=== PATIENT | female | born 1985 | race Caucasian/White ===

== ENCOUNTER → 2021-03-05 11:57 | Outpatient (BNVA) | payer OTHER, SELFPAY | PROVIDERS: Family Provider General Practice; Visit Provider Nurse Practitioner Family | DX: Z20.822 Contact with and (suspected) exposure to COVID-19 (principal); J06.9 Acute upper respiratory infection, unspecified | CPT/HCPCS: 87635 ==

== ENCOUNTER 2021-03-06 16:34 | Emergency (ER) | payer SELFPAY ==
[2021-03-06 16:49] VITALS: BP 103/71; PULSE 76; RESP 18; TEMP 36.7; O2SAT 100; BMI 29.6
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
[2021-03-06] MEDS: amoxicillin-clav 875-125 mg Tablet 1 TAB PO (17:50)
[2021-03-06 17:54] VITALS: BP 118/79; PULSE 67; RESP 18; O2SAT 98
== END 2021-03-06 17:51 | disposition home or self-care (01) ==
PROVIDERS: Emergency Provider Nurse Practitioner Family
DX: Z48.02 Encounter for removal of sutures (principal)
CPT/HCPCS: 99282

== ENCOUNTER 2023-10-28 19:54 | Emergency (ER) | payer OTHER, SELFPAY ==
[2023-10-28 20:23] VITALS: BP 116/74; PULSE 87; RESP 18; TEMP 36.6; O2SAT 99
--- NOTE | 2023-10-28 20:29 | CTR_ITS ---
PROCEDURE INFORMATION: Exam: CT Head Without Contrast Exam date and time: 10/28/2023 8:51 PM Age: 38 years old Clinical indication: Pain; Prior surgery; Surgery date: 1-6 months; Surgery type: Malignant tumor resection August 2023. Patient HX: C/O persistent headaches over last two weeks. Resection of RT frontal intracranial tumor in August 2023. ; Additional info: PERES TECHNIQUE: Imaging protocol: Computed tomography of the head without contrast. Radiation optimization: All CT scans at this facility use at least one of these dose optimization techniques: automated exposure control; mA and/or kV adjustment per patient size (includes targeted exams where dose is matched to clinical indication); or iterative reconstruction. COMPARISON: No relevant prior studies available. RADIATION DOSE METRICS: Total DLP (mGy-cm): 1025.44 FINDINGS: Brain: Right frontal craniotomy changes with right frontal lobe poorly defined low-density area measuring up to at least 3.2 cm, and underlying mass is not excluded, MRI could better assess this area. Cerebral ventricles: No ventriculomegaly. Paranasal sinuses: Visualized sinuses are unremarkable. No fluid levels. Mastoid air cells: Visualized mastoid air cells are well aerated. Bones: See Brain finding. Soft tissues: Unremarkable. CT/CT head wo con* [id number] IMPRESSION: Right frontal craniotomy changes with right frontal lobe poorly defined low-density area measuring up to at least 3.2 cm, and underlying mass is not excluded, MRI could better assess this area.
--- NOTE | 2023-10-28 20:39 | ED_ITS ---
HPI - Headache General: Chief Complaint: Headache Stated Complaint: HeadAche Time Seen by Provider: 10/28/23 20:04 Source: patient Mode of arrival: ambulatory Limitations: no limitations History of Present Illness: 38-year-old female history of brain tumo r she had removed in August. States she did recently moved here states she has been having a headache for the last few weeks pressure-like headache she rates a 7 out of 10 she denies any vomiting denies any fevers she denies any worse improved factors Associated symptoms: Deny chest pain, fever(s), nausea, rash or vomiting Review of Systems Const: Denies: fever(s), chills, body aches or change in appetite Eyes: Denies: blurry vision or eye discomfort ENMT: Denies: throat pain or dental pain Card: Denies: chest pain Resp: Denies: dyspnea GI: Denies: abdominal pain, nausea, vomiting or diarrhea Musc: Denies: neck pain or back pain Skin/Breast: Denies: rash Neuro: Reports: headache(s) Physical Exam Const: COMMON NORMALS: no acute distress, patient oriented x3 and healthy appearing HENMT: COMMON NORMALS: normocephalic and atraumatic HEAD & SCALP: normocephalic and atraumatic Eye: COMMON NORMALS: Equal, round and reactive pupils present PUPIL: Yes Equal, round and reactive pupils present Neck/C-Spine: COMMON NORMALS: full ROM and supple Chest: COMMONS NORMALS: normal inspection of the chest Resp: COMMON NORMALS: normal respiratory effort Cardio: COMMON NORMALS: regular rate, regular rhythm and No murmurs present (Cardio) RATE: regular rate RHYTHM: regular rhythm GI: COMMON NORMALS: Normal to inspection, nondistended, normoactive bowel sounds present, Soft to palpation, non-tender and no masses PALPATION: Yes Soft to palpation Extremity: COMMON NORMALS: normal to inspection and full ROM Neuro: COMMON NORMALS: patient oriented x3, moves all extremities and no focal motor deficits Psych: COMMON NORMALS: mental status grossly normal, Normal thought process present and cooperative THOUGHT PROCESS: Normal thought process present Skin: COMMON NORMALS: no rashes or lesions noted and no wounds GENERAL SKIN EXAM: no rashes or lesions noted Course Vital Signs: Vital signs: Vital Signs Temperature 98 F 10/28/23 20:23 Pulse Rate 87 10/28/23 20:23 Respiratory Rate 18 10/28/23 20:23 Blood Pressure 116/74 10/28/23 20:23 Pulse Oximetry 99 10/28/23 20:23 MDM - Headache Medical Decision Making Patient presents here with a headache she has no signs of migraine hemorrhage or meningitis head CT showed no acute abnormality she does follow-up with oncology next week she is to follow-up as scheduled return here if worsening she understands agrees to plan Medical Records I reviewed the patient's medical records. Lab Data Radiology Impressions Head CT 10/28/23 20:29 IMPRESSION: Right frontal craniotomy changes with right frontal lobe poorly defined low-density area measuring up to at least 3.2 cm, and underlying mass is not excluded, MRI could better assess this area. All radiology interpretation(s) finalized by discharge Discharge Plan Discharge Patient Disposition: Home Clinical Impression: Headache Condition: Stable Prescriptions: No Action amoxicillin-pot clavulanate [Augmentin] 875-125 mg tablet 1 tab PO BID 7 Days Qty: 14 0RF Discharge Orders: Discharge ED (Routine); Ordered 10/28/23 Ordered By: Trista Miles Discharge Diet: Advance as tolerated Discharge Activity: Resume usual activity Patient Instructions: General Headache (ED) Coding Level of Care Code ED Campaign Assistant for Raiza Carmona
[2023-10-28] MEDS: metoclopramide 5 mg/mL SDV 2 mL 10 MG IVP (20:47)
[2023-10-28] MEDS: diphenhydrAMINE 50 mg/mL SDV 1mL IVP (20:47)
--- NOTE | 2023-10-28 21:42 | PC.NURSE ---
Pt. states that the medication helped her headache.
--- NOTE | 2023-10-28 22:03 | PC.NURSE ---
Pt. wanting copies of her CT scan results. I have explained to patient that she is able to get her results through her patient portal, or she is able to go to medical records and sign for a copy of her results.
== END 2023-10-28 22:14 | disposition home or self-care (01) ==
PROVIDERS: Emergency Provider Emergency Medicine
DX: R51.9 Headache, unspecified (principal)
CPT/HCPCS: 70450; 96374; 96375; 99285; J1200; J2765

== ENCOUNTER 2023-10-31 13:54 | Outpatient (CLI) | payer OTHER, SELFPAY ==
--- NOTE | 2023-10-31 13:45 | MR_ITS ---
WS: [id number] MRI BRAIN WITH AND WITHOUT CONTRAST HISTORY: compare to previous COMPARISON: CT head 10/28/2023, no prior MRI. Additional history concerning the mass was obtained from Dr. Gonzalez's oncology history and physical. Prior RIGHT craniotomy 08/29/2023. Prior MRI from outside hospital on 08/30/2023 described a peripherall y enhancing mass measuring 5.1 x 4.0 x 4.1 cm. TECHNIQUE: Multiplanar imaging performed through the brain with MultiHance 20 ml's IV. Postsurgical resection site with tumor debulking is identified in the RIGHT frontal lobe. Large heter ogeneous mass of increased signal with a few scattered central hemosiderin deposits. This area of abn ormal signal involves the duque and white matter measuring 5.0 x 4.3 x 4.0 cm. Mass extends to the ant erior hemispheric falx. There is slight mass effect but no midline shift. On the postcontrast imaging there is nodular peripheral enhancement. There is some increased T1 signal on the precontrast imagin g but the area of enhancement extends beyond the nonenhanced T1 signal abnormality. Area of nodular e nhancement measures 4.0 x 1.9 x 3.4 cm. No definite dural nodularity. The enhancement does extend nela y close to the anterior RIGHT lateral dura. Mass does abut the anterior RIGHT corpus callosum with sl ight displacement. Craniotomy/biopsy amy holes are noted anteriorly. There is fluid along the craniotomy site and there is very slight enhancement. This can be reevaluated on follow-up exams. No ventriculomegaly. Paranasal sinuses: Well aerated with no significant disease. Mastoid air cells: Normal. Calvarium and scalp: Normal. MR/MR head wo/w con [id number] IMPRESSION: 1. No prior MRI brain examinations for comparison. 2. RIGHT frontal lobe surgical resection site measures 5.0 x 4.3 x 4.0 cm. In the central resection site there is nodular irregular enhancement measuring 4.0 x 1.9 x 3.4 cm. No midline shift. There is very minimal bowing of the midline structures to the LEFT. Cannot comment on progression or improvement of the le plasm without the prior MRI examinations. 3. No additional area of abnormal enhancement. Amy holes are identified from the prior biopsy site. There is enhancement along the amy holes which may be s een with post surgery. This can be further evaluated on follow-up exams also. 4. No hydrocephalus.
[2023-10-31] MEDS: gadobenate dimeglumine 20 mL vial IV (14:54)
== END 2023-10-31 13:55 | disposition home or self-care (01) ==
PROVIDERS: Visit Provider Internal Medicine Medical Oncology
DX: C71.9 Malignant neoplasm of brain, unspecified (principal); Z48.811 Encounter for surgical aftercare following surgery on the nervous system; R94.02 Abnormal brain scan
CPT/HCPCS: 70553; A9577

== ENCOUNTER 2023-11-16 14:31 | Oncology outpatient (recurring) (ONCR) | payer OTHER, SELFPAY ==
[2023-10-30 11:04] LABS: Basophils % 0.5 %; Eosinophils # 0.2 10^3/uL (0.0-0.8); Eosinophils % 3.5 %; Lymphocytes # 1.5 10^3/uL (0.8-4.8); Lymphocytes % 23.1 %; Mean Corpuscular HGB Conc 31.1 g/dL (30-55); Mean Corpuscular Hemoglobin 24.3 pg (27-33); Mean Corpuscular Volume 78.2 fl (85-98); Mean Platelet Volume 10.5 fL (7.4-10.4); Monocytes # 0.4 10^3/uL (0.2-0.9); Monocytes % 5.4 %; Neutrophils # 4.35 10^3/uL (1.8-7.7); Neutrophils % 67.2 %; Nucleated Red Blood Cells % 0 %; Platelet Count 263 10^3/cmm (157-399); Red Blood Count 4.73 10^6/uL (3.85-5.65); Red Cell Distribution Width 15.9 % (12.1-15.1); White Blood Count 6.48 10^3/uL (3.29-11.43)
[2023-10-30 11:33] LABS: Alanine Aminotransferase 10 U/L (0-33); Albumin Level 3.9 g/dL (3.5-5.2); Alkaline Phosphatase 65 U/L (35-105); Anion Gap 14.7 (5-19); Aspartate Amino Transferase 10 U/L (0-32); Blood Urea Nitrogen 11 mg/dL (6-20); Calcium 8.8 mg/dL (8.5-10.5); Carbon Dioxide 22 mmol/L (22-29); Chloride 105 mmol/L (98-107); Globulin 3.2 g/dL (1.3-4.6); Glomerular Filtration Rate 111.3 mL/min (90-130); Glucose 93 mg/dL (65-115); Osmolality Calculated 285 mOsm/kg (285-295); Potassium 3.7 mmol/L (3.5-5.1); Sodium 138 mmol/L (136-145); Thyroid Stimulating Hormone 0.66 uIU/mL (0.27-4.20); Total Bilirubin 0.2 mg/dL (0.15-1.2); Total Protein 7.1 g/dL (6.6-8.7)
--- NOTE | 2023-10-30 14:52 | N.ONRAD NP_ITS ---
Radiation Oncology New Patient Visit Patient: Jazmyne Mcmahan MR#: [id number] : 1985> Age: 38> Sex: Female> Dictated by: Dr. Supriya Garcia Date of Service: 10/30/2023 Referring Physician(s) : Carlos Diagnosis: GBM Radiotherapy to date: Summary > No prior radiation therapy. Chief Complaint / History of Present Illness: Patient is a 38-year-old lady who has been recently diagnosed 2 months ago with a GBM. She originally presented to the emergency room with worsening headaches. A CT angiogram showed a low-attenuation mass in the right frontal lobe which at that time measured 4.1 x 2.4 cm in size. By August 23 she was admitted to [facility]. An MRI of her brain showed a mass at that time that was 5.5 cm in size in the frontal region. She was also noted to have a 6 mm right to left midline shift. She had additional scans of the chest abdomen and pelvis and did not have any evidence of a primary lung malignancy. On August 29, 2023 she underwent a right-sided craniotomy. Surgery karimi the debulking was done but her postop scan showed residual malignancy that apparently measured 5.1 x 4 x 4.1 cm in size. 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 The tumor was noted to be hyper methylated with me methylation of MGMT promoter region noted to be greater than or equal to 12%. She had additional mutations detected but no other actionable mutations were noted. She was initially stressed scheduled to start at [facility] and even had a mask made. Between now and then she had elected to move to our area and was unable to continue to be treated in [place]. She is here today to discuss starting radiation here in [place]. She is also seeing Dr. Gonzalez today to talk about chemotherapy. Unfortunately over the last week or 2 she has began to have increasing headaches similar to the ones that she had prior to her surgery. Current Medications: Albuterol Allergies: No known allergies Medical History: Asthma no history of collagen vascular disease. No previous radiation therapy. Surgical History: Cholecystectomy, tubal ligation, craniotomy Family History: Her father had esophageal cancer Social History: She is a current every day smoker. She drinks socially. 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 Current Complaints / Review of Systems: . She currently complains actively of a headache which starts at the base of her skull and radiates over the top. She has some dizziness and some nausea as well Vital Signs: Performed on 10/30/2023 11:31 AM BMI - 33.282 kg/m2 (high), Height - 65 in, Weight - 200 lbs, Temperature - 98 f, Pulse - 86 /min, Respiration - 17 /min, O2 Sat - 99 %, Pain - 10, Fatigue - 0 and BP - 122/ 78 mm(hg). Physical Exam: General: Patient is in no apparent distress. She is accompanied by several family members. HEENT: She has a well-healing incision in the right frontal parietal area. Her hair is growing back nearly an entire inch since her surgery. Pupils are equal round reactive to light, extraocular muscles intact, sclera clear Pulmonary: Respiratory rate is regular nonlabored Cardiovascular: Regular rate and rhythm Abdomen: Moderately protuberant and android pattern Extremities: Without gross edema or lymphedema noted in the upper or lower extremities Neurological: Alert and orient x 3. Gait and speech within normal limits, no focal deficits noted Psych: Affect is appropriate for current situation Performance Status: 90 Pathology: High-grade glioma, GBM Lab: Imaging: See HPI Impression: GBM and a 38-year-old Plan: This time we talked about trying to get her treatment started soon as possible. She will have another MRI so we can see the full extent of her disease currently. Will use this to help with the planning phase. She is already been through the simulation process. She has previously discussed the daily treatment regiment and knows that it would be a 6-week course of treatment. She also understands the risks and side effects both acute and long-term. At this point we will see if we can get her simulation done tomorrow and hopefully her MRI this next few days as well then we get her treatment started soon as possible. In the interim I have asked her to picker and packer some Prevacid or Pepcid and I will start her on dexamethasone 4 mg 3 times a day. Signed by: 10/30/2023 2:50:34 PM <<Signature on File>> Time spent with patient:35 CPT Code: CPT Code:
[2023-11-09 11:07] LABS: Basophils # 0.1 10^3/uL (0.0-0.1); Basophils % 0.2 %; Hematocrit 40.3 % (36-47); Lymphocytes # 3.5 10^3/uL (0.8-4.8); Lymphocytes % 15.4 %; Mean Corpuscular Hemoglobin 24.3 pg (27-33); Mean Corpuscular Volume 78.3 fl (85-98); Mean Platelet Volume 9.6 fL (7.4-10.4); Monocytes # 1.2 10^3/uL (0.2-0.9); Monocytes % 5.5 %; Neutrophils # 16.96 10^3/uL (1.8-7.7); Neutrophils % 75.8 %; Nucleated Red Blood Cells % 0 %; Platelet Count 425 10^3/cmm (157-399); Red Blood Count 5.15 10^6/uL (3.85-5.65); Red Cell Distribution Width 17.5 % (12.1-15.1); White Blood Count 22.41 10^3/uL (3.29-11.43)
[2023-11-09 11:25] LABS: Alanine Aminotransferase 16 U/L (0-33); Albumin Level 3.9 g/dL (3.5-5.2); Alkaline Phosphatase 69 U/L (35-105); Aspartate Amino Transferase 10 U/L (0-32); Blood Urea Nitrogen 21 mg/dL (6-20); Carbon Dioxide 20 mmol/L (22-29); Chloride 106 mmol/L (98-107); Globulin 3.2 g/dL (1.3-4.6); Glomerular Filtration Rate 93.2 mL/min (90-130); Glucose 104 mg/dL (65-115); Osmolality Calculated 289 mOsm/kg (285-295); Sodium 138 mmol/L (136-145); Total Bilirubin 0.2 mg/dL (0.15-1.2); Total Protein 7.1 g/dL (6.6-8.7)
[2023-11-09 11:27] LABS: Anion Gap 15.6 (5-19); Potassium 3.6 mmol/L (3.5-5.1)
--- NOTE | 2023-11-14 15:01 | ONCRAD TMN_ITS ---
Radiation Oncology Weekly Treatment Management Patient: Jazmyne Mcmahan MR#: [id number] : 1985 Attending Physician: Dr. 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 ID: [id number], Energy: 6X, Dose/Fx (cGy): 200, #Fx: , Dose Correction (cGy): 0, Total Dose Delivered (cGy): 800, Start Date: 11/09/2023, Elapsed Days: 5 Reason for visit: The patient is being seen today as part of their regularly scheduled weekly on treatment visits to assess for acute toxicities from radiotherapy. Review of Systems: She is having some issues with the steroids. We had decreased her down to twice a day but she still having some issues with reflux and bloating and not being able to sleep well she otherwise has had no other changes Vital Signs: Performed on 11/14/2023 2:46 PM BMI - 34.414 kg/m2 (high), Height - 65 in, Weight - 206.8 lbs, Temperature - 96.7 f, Pulse - 86 /min, Respiration - 18 /min, O2 Sat - 96 %, Pain - 0, Fatigue - 0 and BP - 102/ 69 mm(hg). Physical Exam: No change on exam Imaging: Radiation therapy imaging related to accurate target localization (i.e. KV, MV and CBCT) was reviewed. Appropriate changes, if any, were made to ensure treatment accuracy. Plan: Will continue with her treatments. I asked her to go ahead and cut her steroid dose in half for 4 days and then in half again for 4 more days and then she should be off of it. She will continue to take her Temodar and has had no nausea with it. Signed by: Dr. Supriya Garcia 11/14/2023 3:00:43 PM
== END 2023-11-16 23:59 | disposition home or self-care (01) ==
PROVIDERS: Internal Medicine Medical Oncology; Nurse Practitioner Family; Visit Provider Radiology Radiation Oncology
DX: Z51.0 Encounter for antineoplastic radiation therapy (principal); C71.1 Malignant neoplasm of frontal lobe
CPT/HCPCS: 36415; 77300; 77301; 77334; 77336; 77338; 77386; 77470; 80053; 83540; 83550; 84443; 85025; 99205

== ENCOUNTER 2023-11-17 11:36 | Oncology outpatient (recurring) (ONCR) | payer OTHER, SELFPAY | END 2023-11-19 23:59 | disposition home or self-care (01) | PROVIDERS: Visit Provider Radiology Radiation Oncology | DX: Z51.0 Encounter for antineoplastic radiation therapy (principal); C71.1 Malignant neoplasm of frontal lobe | CPT/HCPCS: 77014; 77386 ==

== ENCOUNTER 2023-12-08 11:31 | Oncology outpatient (recurring) (ONCR) | payer OTHER, SELFPAY ==
--- NOTE | 2023-11-21 13:51 | ONCRAD TMN_ITS ---
Radiation Oncology Weekly Treatment Management Patient: Jazmyne Mcmahan MR#: [id number] : 1985 Attending Physician: Dr. 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 ID: [id number], Energy: 6X, Dose/Fx (cGy): 200, #Fx: , Dose Correction (cGy): 0, Total Dose Delivered (cGy): 1,800, Start Date: 11/09/2023, Elapsed Days: 12 Reason for visit: The patient is being seen today as part of their regularly scheduled weekly on treatment visits to assess for acute toxicities from radiotherapy. Review of Systems: Patient has gotten off her steroids. She has not had any issues. She is lost the weight and her energy is back. Vital Signs: Performed on 11/21/2023 1:30 PM BMI - 34.38 kg/m2 (high), Height - 65 in, Weight - 206.6 lbs, Temperature - 96.3 f, Pulse - 73 /min, Respiration - 16 /min, O2 Sat - 98 %, Pain - 0, Fatigue - 0 and BP - 116/ 75 mm(hg). Physical Exam: No changes on skin. No hair loss noted. Imaging: Radiation therapy imaging related to accurate target localization (i.e. KV, MV and CBCT) was reviewed. Appropriate changes, if any, were made to ensure treatment accuracy. Plan: Will continue treatments as planned Signed by: Dr. Supriya Garcia 11/21/2023 1:50:15 PM
--- NOTE | 2023-11-28 15:16 | ONCRAD TMN_ITS ---
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 ID: [id number], Energy: 6X, Dose/Fx (cGy): 200, #Fx: , Dose Correction (cGy): 0, Total Dose Delivered (cGy): 2,600, Start Date: 11/09/2023, Elapsed Days: 19 Reason for visit: The patient is being seen today as part of their regularly scheduled weekly on treatment visits to assess for acute toxicities from radiotherapy. Review of Systems: This is a pleasant 38-year-old female who is undergoing treatment for right frontal lobe GBM. She is moved to this area to be close to her mom. She remains off of steroids with no symptoms. Her presenting symptoms were increasing headaches and dizziness which she adamantly denies at this time. Labs are adequate as of 11/16/2023. She denies any concerns at this time. She admits to losing some hair at this time she was cautioned not to get her hair at this time due to being symptoms with her hair intact. Vital Signs: Performed on 11/28/2023 2:35 PM BMI - 34.314 kg/m2 (high), Height - 65 in, Weight - 206.2 lbs, Temperature - 97.0 f, Pulse - 73 /min, Respiration - 18 /min, O2 Sat - 99 %, Pain - 0, Fatigue - 0 and BP - 116/ 74 mm(hg). Physical Exam: AAOx3. Mild hair loss at this time in the right temporal area. Negative neurological exam otherwise. Imaging: Radiation therapy imaging related to accurate target localization (i.e. KV, MV and CBCT) was reviewed. Appropriate changes, if any, were made to ensure treatment accuracy. Plan: Continue XRT Continue daily Temodar. Notify us if any symptoms return as we may have to start oral steroids again. Patient and family appear to understand instructions. Signed by: Natanael Trujillo 11/28/2023 3:15:21 PM
--- NOTE | 2023-12-05 15:06 | ONCRAD TMN_ITS ---
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 ID: [id number], Energy: 6X, Dose/Fx (cGy): 200, #Fx: 18 / 30, Dose Correction (cGy): 0, Total Dose Delivered (cGy): 3,600, Start Date: 11/09/2023, Elapsed Days: 26 Reason for visit: The patient is being seen today as part of their regularly scheduled weekly on treatment visits to assess for acute toxicities from radiotherapy. Review of Systems: This is a pleasant 38-year-old female undergoing treatment for right frontal lobe GBM. She denies any problems at this time other than losing hair and the treatment portal areas. She remains off her steroids with no symptoms or problems. She will undergo labs today. Vital Signs: Performed on 12/05/2023 2:32 PM BMI - 33.215 kg/m2 (high), Height - 65 in, Weight - 199.6 lbs, Temperature - 97.6 f, Pulse - 81 /min, Respiration - 18 /min, O2 Sat - 99 %, Pain - 0, Fatigue - 0 and BP - 115/ 76 mm(hg). Physical Exam: AAOx3. Skin intact. Areas of balding in portal areas. Imaging: Radiation therapy imaging related to accurate target localization (i.e. KV, MV and CBCT) was reviewed. Appropriate changes, if any, were made to ensure treatment accuracy. Plan: Cont XRT Labs today Cont Temodar daily Signed by: Natanael Trujillo 12/05/2023 3:04:55 PM
[2023-12-05 16:07] LABS: Basophils % 0.6 %; Eosinophils # 0.1 10^3/uL (0.0-0.8); Eosinophils % 1.9 %; Hematocrit 39.8 % (36-47); Lymphocytes # 1.3 10^3/uL (0.8-4.8); Lymphocytes % 24.6 %; Mean Corpuscular HGB Conc 32.2 g/dL (30-55); Mean Corpuscular Hemoglobin 26.4 pg (27-33); Mean Corpuscular Volume 82.1 fl (85-98); Mean Platelet Volume 10.6 fL (7.4-10.4); Monocytes # 0.3 10^3/uL (0.2-0.9); Monocytes % 6.3 %; Neutrophils # 3.54 10^3/uL (1.8-7.7); Nucleated Red Blood Cells % 0 %; Platelet Count 327 10^3/cmm (157-399); Red Blood Count 4.85 10^6/uL (3.85-5.65); White Blood Count 5.36 10^3/uL (3.29-11.43)
[2023-12-05 16:27] LABS: Alanine Aminotransferase 20 U/L (0-33); Alkaline Phosphatase 47 U/L (35-105); Aspartate Amino Transferase 18 U/L (0-32); Blood Urea Nitrogen 10 mg/dL (6-20); Carbon Dioxide 22 mmol/L (22-29); Chloride 105 mmol/L (98-107); Glomerular Filtration Rate 93.2 mL/min (90-130); Glucose 123 mg/dL (65-115); Osmolality Calculated 292 mOsm/kg (285-295); Sodium 141 mmol/L (136-145); Total Bilirubin 0.3 mg/dL (0.15-1.2)
[2023-12-05 16:52] LABS: Anion Gap 17.4 (5-19); Potassium 3.4 mmol/L (3.5-5.1)
== END 2023-12-08 23:59 | disposition home or self-care (01) ==
PROVIDERS: Nurse Practitioner Family; Visit Provider Radiology Radiation Oncology
DX: Z51.0 Encounter for antineoplastic radiation therapy (principal); C71.1 Malignant neoplasm of frontal lobe
CPT/HCPCS: 36415; 77336; 77386; 80053; 85025

== ENCOUNTER 2023-12-14 14:33 | Oncology outpatient (recurring) (ONCR) | payer OTHER, SELFPAY ==
--- NOTE | 2023-12-12 14:57 | ONCRAD TMN_ITS ---
Radiation Oncology Weekly Treatment Management Patient: Jazmyne Mcmahan MR#: [id number] : 1985 Attending Physician: Dr. 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 ID: [id number], Energy: 6X, Dose/Fx (cGy): 200, #Fx: , Dose Correction (cGy): 0, Total Dose Delivered (cGy): 4,600, Start Date: 11/09/2023, Elapsed Days: 33 Reason for visit: The patient is being seen today as part of their regularly scheduled weekly on treatment visits to assess for acute toxicities from radiotherapy. Review of Systems: Patient is still having some issues with her appetite from the [place]. She is dropped down from 212 the 193. She said that prior to all of this happening she weighed about 180 Vital Signs: Performed on 12/12/2023 2:31 PM BMI - 32.816 kg/m2 (high), Height - 65 in, Weight - 197.2 lbs, Temperature - 97.1 f, Pulse - 89 /min, Respiration - 18 /min, O2 Sat - 98 %, Pain - 0, Fatigue - 0 and BP - 137/ 87 mm(hg). Physical Exam: On exam her skin is without changes but the hairs become thinner and areas Imaging: Radiation therapy imaging related to accurate target localization (i.e. KV, MV and CBCT) was reviewed. Appropriate changes, if any, were made to ensure treatment accuracy. Plan: Will continue with her treatments as planned. Signed by: Dr. Supriya Garcia 12/12/2023 2:54:55 PM
== END 2023-12-20 23:59 | disposition home or self-care (01) ==
PROVIDERS: Visit Provider Radiology Radiation Oncology
DX: Z51.0 Encounter for antineoplastic radiation therapy (principal); C71.1 Malignant neoplasm of frontal lobe
CPT/HCPCS: 77386

== ENCOUNTER 2023-12-29 11:15 | Oncology outpatient (recurring) (ONCR) | payer OTHER, SELFPAY ==
--- NOTE | 2023-12-26 13:40 | ONCRAD TMN_ITS ---
Radiation Oncology Weekly Treatment Management Patient: Martir Conte MR#: [id number] : 1985> Attending Physician: Dr. 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 ID: [id number], Energy: 6X, Dose/Fx (cGy): 200, #Fx: 27 / 30, Dose Correction (cGy): 0, Total Dose Delivered (cGy): 5,400, Start Date: 11/09/2023, Elapsed Days: 47 Reason for visit: The patient is being seen today as part of their regularly scheduled weekly on treatment visits to assess for acute toxicities from radiotherapy. Review of Systems: Patient has lost a little bit more hair. Vital Signs: Performed on 12/26/2023 1:20 PM BMI - 32.284 kg/m2 (high), Height - 65 in, Weight - 194 lbs, Temperature - 97.1 f, Pulse - 54 /min (low), Respiration - 18 /min, O2 Sat - 99 %, Pain - 0, Fatigue - 0 and BP - 104/ 74 mm(hg). Physical Exam: She has areas of thinning hair across the right frontal area. Underlying skin is without changes Imaging: Radiation therapy imaging related to accurate target localization (i.e. KV, MV and CBCT) was reviewed. Appropriate changes, if any, were made to ensure treatment accuracy. Plan: Will continue with her treatments. She will be finished on Monday signed by: Dr. Supriya Garcia 12/26/2023 1:39:00 PM
[2023-12-26 14:22] LABS: Basophils % 0.6 %; Eosinophils # 0.1 10^3/uL (0.0-0.8); Eosinophils % 1.8 %; Lymphocytes # 0.9 10^3/uL (0.8-4.8); Lymphocytes % 16.2 %; Mean Corpuscular HGB Conc 32.6 g/dL (30-55); Mean Corpuscular Hemoglobin 27.1 pg (27-33); Mean Platelet Volume 10.5 fL (7.4-10.4); Monocytes # 0.3 10^3/uL (0.2-0.9); Monocytes % 6.3 %; Neutrophils # 4.07 10^3/uL (1.8-7.7); Neutrophils % 74.9 %; Nucleated Red Blood Cells % 0 %; Platelet Count 283 10^3/cmm (157-399); Red Blood Count 4.58 10^6/uL (3.85-5.65); White Blood Count 5.43 10^3/uL (3.29-11.43)
[2023-12-26 14:39] LABS: Alanine Aminotransferase 19 U/L (0-33); Alkaline Phosphatase 56 U/L (35-105); Anion Gap 15.3 (5-19); Aspartate Amino Transferase 17 U/L (0-32); Blood Urea Nitrogen 9 mg/dL (6-20); Carbon Dioxide 23 mmol/L (22-29); Chloride 108 mmol/L (98-107); Globulin 2.7 g/dL (1.3-4.6); Glomerular Filtration Rate 93.2 mL/min (90-130); Glucose 99 mg/dL (65-115); Osmolality Calculated 295 mOsm/kg (285-295); Potassium 3.3 mmol/L (3.5-5.1); Sodium 143 mmol/L (136-145); Total Bilirubin 0.3 mg/dL (0.15-1.2); Total Protein 6.7 g/dL (6.6-8.7)
--- NOTE | 2024-01-01 13:27 | N.ONRD TS_ITS ---
Radiation Oncology Treatment Summary Patient: Jazmyne Mcmahan MR#: [id number] : 1985 Age: 38 Sex: Female Dictated by: Dr. 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 ID: [id number], Energy: 6X, Dose/Fx (cGy): 200, #Fx: 30 / 30, Dose Correction (cGy): 0, Total Dose Delivered (cGy): 6,000, Start Date: 11/09/2023, End Date: 12/29/2023, Elapsed Days: 50 Clinical Summary: The patient tolerated RT well. She unfortunately did miss several days towards the end of her treatment. This caused her elapsed days to get clear out to 50 days. She otherwise had minimal toxicity with mild hair loss Plan: End of treatment today. Continue on the above medication until the skin reaction resolves. Follow up in one month. Signed by: Dr. Supriya Garcia>01/01/2024 1:26:44 PM <<Signature on File>>
== END 2024-01-20 23:59 | disposition home or self-care (01) ==
PROVIDERS: Internal Medicine Medical Oncology; Visit Provider Radiology Radiation Oncology
DX: Z51.0 Encounter for antineoplastic radiation therapy (principal); C71.1 Malignant neoplasm of frontal lobe
CPT/HCPCS: 36415; 77336; 77386; 80053; 85025

== ENCOUNTER 2024-01-22 17:19 | Emergency (ER) | payer OTHER, SELFPAY ==
[2024-01-22 17:36] VITALS: BP 127/85; PULSE 64; RESP 16; TEMP 36.7; O2SAT 100
--- NOTE | 2024-01-22 17:44 | CTR_ITS ---
PROCEDURE INFORMATION: Exam: CT Head Without Contrast Exam date and time: 01/22/2024 6:22 PM Age: 38 years old Clinical indication: Pain; Headache; Migraine; Prior surgery; Surgery date: 6+ months; Surgery type: Glioma in August 2023; Additional info: PERES TECHNIQUE: Imaging protocol: Computed tomography of the head without contrast. Radiation optimization: All CT scans at this facility use at least one of these dose optimization techniques: automated exposure control; mA and/or kV adjustment per patient size (includes targeted exams where dose is matched to clinical indication); or iterative reconstruction. COMPARISON: MR head wo/w con [id number] 10/31/2023 2:19 PM RADIATION DOSE METRICS: Total DLP (mGy-cm): 998.24 FINDINGS: Brain: Redemonstrated surgical changes of right frontal craniotomy. Masslike area of hypoattenuation in the resection bed measuring approximately 4.7 x 5.1 x 3.7 cm (CC, AP, TV), increased in size from 10/28/2023 CT. Regional mass effect with increased partial effacement of the kuklj-ytfpunw-ftay-left lateral ventricular frontal horns and new 4 mm leftward midline shift. Crowding of the suprasellar cistern. No acute intracranial hemorrhage. Cerebral ventricles: As above. No acute hydrocephalus. Paranasal sinuses: Visualized sinuses are well-aerated. No fluid levels. Mastoid air cells: Visualized mastoid air cells are well aerated. Orbital cavities: No acute abnormality. Bones: Surgical changes. Soft tissues: No acute abnormality. CT/CT head wo con* [id number] IMPRESSION: Masslike area of hypoattenuation in the right frontal lobe resection bed is increased in size compared to 10/28/2023 CT, incompletely characterized on CT. Associated mass effect with new 4 mm leftward midline shift and increased effacement of the yefvy-molikkh-umih-left lateral ventricular frontal horns. MRI with and without IV contrast is recommended for further evaluation.
--- NOTE | 2024-01-22 17:52 | ED_ITS ---
HPI - Headache General: Chief Complaint: Headache Stated Complaint: headaches/dizziness Time Seen by Provider: 01/22/24 17:41 Source: patient Mode of arrival: ambulatory Limitations: no limitations History of Present Illness: 38-year-old female history of glioblasto ma she has had surgical excision and just finished radiation states that she been having some headaches x 3 days. Headaches are 7 out of 10 states mainly on the right side denies any worse improved factors denies any vomiting denies any fevers. Associated symptoms: Deny chest pain, fever(s), nausea, rash or vomiting Related Data Home Medications Medication Instructions Recorded Confirmed albuterol sulfate 90 mcg/actuation 2 puff inhalation Q6H PRN 10/30/23 12/27/23 aerosol inhaler Previous Rx's Medication Instructions Recorded dexamethasone 4 mg tablet 4 mg PO TID brain tumor 1 month 10/30/23 #90 tabs ondansetron 4 mg disintegrating 4 mg PO Q6H PRN moderate nausea 11/09/23 tablet and vomiting #30 tabs prochlorperazine maleate 10 mg 10 mg PO Q6H PRN mild nausea and 11/09/23 tablet vomiting #30 tabs citalopram 20 mg tablet 20 mg PO DAILY #30 tabs 12/27/23 pantoprazole 40 mg tablet,delayed 40 mg PO DAILY #30 tabs 12/27/23 release (Protonix) temozolomide 100 mg capsule 300 mg (3 x 100 mg) PO DAILY 5 12/27/23 days #15 caps Allergies Allergy/AdvReac Type Severity Reaction Status Date / Time No Known Allergies Allergy Verified 01/22/24 17:40 Review of Systems Const: Denies: fever(s), chills, body aches or change in appetite Eyes: Denies: blurry vision or eye discomfort ENMT: Denies: throat pain or dental pain Card: Denies: chest pain Resp: Denies: dyspnea GI: Denies: abdominal pain, nausea, vomiting or diarrhea Musc: Denies: neck pain or back pain Skin/Breast: Denies: rash Neuro: Reports: headache(s) PFS ED PFSH: Medical History Asthma Glioblastoma Surgical History History of cholecystectomy Hx of tubal ligation History of craniotomy (08/29/23) right-sided craniotomy with tumor debulking Family History Father Esophageal cancer Family/Other Lung cancer Social History Smoking and tobacco/nicotine status: current some day tobacco/nicotine user cigarettes [ Other cigarette details: She previously smoked 1 PPD, but she is now down to 3 cigarettes/day.] Alcohol intake: current Alcohol intake frequency: 0-2 Drinks per Day Substance/Drug Use: former Former substance use details: She has a history of fentanyl and methamphetamine abuse. Physical Exam Const: COMMON NORMALS: no acute distress, patient oriented x3 and healthy appearing HENMT: COMMON NORMALS: normocephalic and atraumatic HEAD & SCALP: normocephalic and atraumatic Eye: COMMON NORMALS: Equal, round and reactive pupils present and EOMs intact bilaterally PUPIL: Yes Equal, round and reactive pupils present Neck/C-Spine: COMMON NORMALS: full ROM and supple Chest: COMMONS NORMALS: normal inspection of the chest Resp: COMMON NORMALS: normal respiratory effort Cardio: COMMON NORMALS: regular rate, regular rhythm and No murmurs present (Cardio) RATE: regular rate RHYTHM: regular rhythm Extremity: COMMON NORMALS: normal to inspection and full ROM Neuro: COMMON NORMALS: patient oriented x3, moves all extremities and no focal motor deficits Psych: COMMON NORMALS: mental status grossly normal, Normal thought process present and cooperative THOUGHT PROCESS: Normal thought process present Skin: COMMON NORMALS: no rashes or lesions noted and no wounds GENERAL SKIN EXAM: no rashes or lesions noted Course Vital Signs: Vital signs: Vital Signs Temperature 98.0 F 01/22/24 17:36 Pulse Rate 57 L 01/22/24 19:05 Respiratory Rate 16 01/22/24 19:05 Blood Pressure 133/73 01/22/24 19:05 Pulse Oximetry 99 01/22/24 19:05 Oxygen Delivery Me thod Room Air 01/22/24 19:05 MDM - Headache Medical Decision Making Patient presents here with a headache I did discuss her CT findings with her oncologist Dr. Gonzalez her headaches resolved here she is to follow-up with him for further workup. Return if worsening Medical Records I reviewed the patient's medical records. Lab Data Radiology Impressions Head CT 01/22/24 17:44 IMPRESSION: Masslike area of hypoattenuation in the right frontal lobe resection bed is increased in size compared to 10/28/2023 CT, incompletely characterized on CT. Associated mass effect with new 4 mm leftward midline shift and increased effacement of the vdnsp-lzywmwb-vwgy-left lateral ventricular frontal horns. MRI with and without IV contrast is recommended for further evaluation. All radiology interpretation(s) finalized by discharge Discharge Plan Discharge Patient Disposition: Home Clinical Impression: Headache Condition: Stable Prescriptions: No Action albuterol sulfate 90 mcg/actuation HFA aerosol inhaler 2 puff inhalation Q6H PRN prochlorperazine maleate 10 mg tablet 10 mg PO Q6H PRN (Reason: mild nausea and vomiting) Qty: 30 3RF ondansetron 4 mg tablet,disintegrating 4 mg PO Q6H PRN (Reason: moderate nausea and vomiting) Qty: 30 3RF pantoprazole [Protonix] 40 mg tablet,delayed release (DR/EC) 40 mg PO DAILY Qty: 30 3RF citalopram 20 mg tablet 20 mg PO DAILY Qty: 30 3RF temozolomide 100 mg capsule 300 mg PO DAILY 5 Days Qty: 15 0RF Rx Instructions: To start 4 weeks after finishing radiation dexamethasone 4 mg tablet 4 mg PO TID 30 Days Qty: 90 1RF Discharge Orders: Discharge ED (Routine); Ordered 01/22/24 Ordered By: Trista Miles Discharge Diet: Advance as tolerated Discharge Activity: Resume usual activity Patient Instructions: General Headache (ED) Coding Level of Care Code ED Classics Teacher for Raiza Carmona
[2024-01-22] MEDS: metoclopramide 5 mg/mL SDV 2 mL 10 MG IVP (17:58)
[2024-01-22] MEDS: morphine 4 mg/mL SDV 1 mL IVP (17:58)
[2024-01-22] MEDS: diphenhydrAMINE 50 mg/mL SDV 1mL IVP (17:58)
[2024-01-22 19:05] VITALS: BP 133/73; PULSE 57; RESP 16; O2SAT 99
[2024-01-22 21:05] VITALS: BP 132/91; PULSE 64; RESP 16; O2SAT 99
== END 2024-01-22 21:06 | disposition home or self-care (01) ==
PROVIDERS: Emergency Provider Emergency Medicine
DX: R51.9 Headache, unspecified (principal); F17.210 Nicotine dependence, cigarettes, uncomplicated
CPT/HCPCS: 70450; 96374; 96375; 99285; J1200; J2270; J2765

== ENCOUNTER 2024-01-26 13:06 | Outpatient (CLI) | payer OTHER, SELFPAY ==
--- NOTE | 2024-01-26 13:00 | MRR_ITS ---
PROCEDURE INFORMATION: Exam: MR Head Without and With Contrast Exam date and time: 01/26/2024 1:25 PM Age: 38 years old Clinical indication: Pain; Headache not specified; Prior surgery; Surgery date: 1-6 months; Surgery type: Brain surgery August 2023, partial tumor removal; Additional info: Headaches in PT with gbm TECHNIQUE: Imaging protocol: Magnetic resonance imaging of the head without and with contrast. Contrast material: MULTIHANCE; Contrast volume: 17 ml; Contrast route: INTRAVENOUS (IV); COMPARISON: CT head wo con* [id number] 01/22/2024 6:22 PM FINDINGS: Tubes, catheters and devices: Right frontal resection cavity with rim enhancement. Small area of T1 shortening within the cavity, probably small amount of hemorrhagic/surgical material. Moderate surrounding edema, confined to the right frontal lobe. Downward displacement right side of the corpus callosum as a result. Additionally there is mass effect extending into the posterior fossa with subtle tonsillar herniation as on the prior examination. Brain: No acute infarct. No hemorrhage. Cerebral ventricles: Normal. No ventriculomegaly. Bones: Previous right frontal craniotomy. Paranasal sinuses: Normal as visualized. No acute sinusitis. Mastoid air cells: Normal as visualized. No mastoid effusion. Orbital cavities: Unremarkable. Soft tissues: Unremarkable. Other findings: No distant abnormal enhancement. MR/MR head wo/w con [id number] IMPRESSION: 1. Right frontal resection cavity with surrounding edema. 2. Mass effect producing downward displacement of corpus callosum well as borderline tonsillar herniation, as previously.
[2024-01-26] MEDS: gadobenate dimeglumine 20 mL vial IV (13:33)
== END 2024-01-26 13:07 | disposition home or self-care (01) ==
LOC: RAD 13:06
PROVIDERS: Visit Provider Radiology Radiation Oncology
DX: C71.1 Malignant neoplasm of frontal lobe (principal); Z98.890 Other specified postprocedural states; G93.6 Cerebral edema; R94.02 Abnormal brain scan
CPT/HCPCS: 70553

== ENCOUNTER 2024-02-01 08:00 | Oncology outpatient (recurring) (ONCR) | payer OTHER, SELFPAY ==
--- NOTE | 2024-01-23 12:15 | ONCRAD EPV_ITS ---
Radiation Oncology Established Patient Visit Patient: Jazmyne Mcmahan [id number] : 1985 Age: 38 Sex: Female Dictated by: Dr. 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 ID: [id number], Energy: 6X, Dose/Fx (cGy): 200, #Fx: 30 / 30, Dose Correction (cGy): 0, Total Dose Delivered (cGy): 6,000 Start Date: 11/09/2023, End Date: 12/29/2023, Elapsed Days: 50 Current History: Patient was scheduled to see me on this week. She went to the emergency room this weekend with 3 days of headache which she describes as starting in her neck and going up over her skull. She says this feels just like it did when her cancer was growing. She had a CT scan which showed a mass like area of hypoattenuation in the right frontal lobe resection bed which had increased compared to the scan in October. There was also an associated mass effect with a new 4 mm leftward shift of midline and increased effacement of the right greater than left lateral ventricular frontal horn. MRI was recommended for better evaluation. Current Medications: Allergies: Current Complaints / Review of Systems: . Vital Signs: Performed on 01/23/2024 12:02 PM BMI - 32.383 kg/m2 (high), Height - 65 in, Weight - 194.6 lbs, Temperature - 97.3 f, Pulse - 67 /min, Respiration - 16 /min, O2 Sat - 98 %, Pain - 10, Fatigue - 10 and BP - 124/ 80 mm(hg). Physical Exam: General: Alert and oriented x 3. She is in obvious pain.. HEENT: Normocephalic, atraumatic. Extraocular Movements Intact: Pupils Equal, Round, Reactive to Light: Sclerae anicteric LUNGS: Respiratory rate is regular nonlabored. HEART: Regular rate and rhythm, NEUROLOGIC: Alert and orient x 3. Gait and speech within normal limits. Performance Status: Lab: None pending. Pathology: Primary, c71.1 - malignant neoplasm of frontal lobe, Diagnosed 10/30/2023 (active) . Imaging: See HPI Impression: GBM with recurrent symptoms Plan: At this point we will go ahead and give her IV steroids today. I have sent a refill on her dexamethasone to her pharmacy. I reminded her to start something to help with her stomach acid as well. I put through an urgent request for an MRI and at this point she will return on to see myself and Dr. Gonzalez. Signed by: 01/23/2024 12:14:38 PM <<Signature on File>> Time spent with patient: 15 CPT Code: CPT Code:
[2024-01-23] MEDS: dexamethasone 10 mg/mL INJ 6 MG IVP (12:32)
[2024-01-23 12:43] VITALS: BP 110/77; PULSE 70; RESP 16; TEMP 36.6; O2SAT 99
[2024-02-01 08:16] LABS: Basophils % 0.1 %; Hematocrit 42.3 % (36-47); Lymphocytes # 1.3 10^3/uL (0.8-4.8); Lymphocytes % 7.5 %; Mean Corpuscular Hemoglobin 28.3 pg (27-33); Mean Corpuscular Volume 83.1 fl (85-98); Mean Platelet Volume 9.8 fL (7.4-10.4); Monocytes # 0.6 10^3/uL (0.2-0.9); Monocytes % 3.8 %; Neutrophils # 14.47 10^3/uL (1.8-7.7); Neutrophils % 87.4 %; Nucleated Red Blood Cells % 0 %; Platelet Count 372 10^3/cmm (157-399); Red Blood Count 5.09 10^6/uL (3.85-5.65); Red Cell Distribution Width 17.8 % (12.1-15.1); White Blood Count 16.56 10^3/uL (3.29-11.43)
[2024-02-01 08:38] LABS: Alanine Aminotransferase 19 U/L (0-33); Albumin Level 4.5 g/dL (3.5-5.2); Alkaline Phosphatase 63 U/L (35-105); Anion Gap 16.5 (5-19); Aspartate Amino Transferase 12 U/L (0-32); Blood Urea Nitrogen 22 mg/dL (6-20); Calcium 9.5 mg/dL (8.5-10.5); Carbon Dioxide 23 mmol/L (22-29); Chloride 100 mmol/L (98-107); Creatinine Clr Calc Pharmacy 137.2376; Glomerular Filtration Rate 111.3 mL/min (90-130); Glucose 111 mg/dL (65-115); Osmolality Calculated 284 mOsm/kg (285-295); Potassium 4.5 mmol/L (3.5-5.1); Sodium 135 mmol/L (136-145); Total Bilirubin 0.4 mg/dL (0.15-1.2); Total Protein 7.5 g/dL (6.6-8.7)
== END 2024-02-19 23:59 | disposition home or self-care (01) ==
PROVIDERS: Internal Medicine Medical Oncology; Visit Provider Radiology Radiation Oncology
DX: C71.1 Malignant neoplasm of frontal lobe (principal); Z53.9 Procedure and treatment not carried out, unspecified reason
CPT/HCPCS: 36415; 80053; 85025; 96374; J1100

== ENCOUNTER 2024-02-09 17:31 | Emergency (ER) | payer OTHER, SELFPAY ==
[2024-02-09 17:34] VITALS: BP 142/88; PULSE 93; RESP 18; TEMP 36.7; O2SAT 99; BMI 30.7
--- NOTE | 2024-02-09 18:09 | XRR_ITS ---
PROCEDURE INFORMATION: Exam: XR Chest Exam date and time: 02/09/2024 6:11 PM Age: 38 years old Clinical indication: Shortness of breath; Additional info: SOB TECHNIQUE: Imaging protocol: Radiologic exam of the chest. Views: 1 view. COMPARISON: CT chest abdpel w/*[id number] 08/24/2023 11:45 PM FINDINGS: Lungs: The lungs are clear. No pulmonary consolidation. Pleural spaces: No pleural effusion or pneumothorax. Heart/Mediastinum: The cardiomediastinal silhouette is within normal limits. Bones/joints: No acute osseous abnormalities are seen. XR/XR chest 1V portable [id number] IMPRESSION: No acute cardiopulmonary disease.
[2024-02-09 18:12] LABS: Basophils % 0.1 %; Lymphocytes # 0.9 10^3/uL (0.8-4.8); Lymphocytes % 5.6 %; Mean Corpuscular HGB Conc 32.9 g/dL (30-55); Mean Corpuscular Hemoglobin 28.4 pg (27-33); Mean Corpuscular Volume 86.3 fl (85-98); Mean Platelet Volume 9.2 fL (7.4-10.4); Monocytes # 0.7 10^3/uL (0.2-0.9); Monocytes % 4.6 %; Neutrophils % 87.3 %; Nucleated Red Blood Cells % 0 %; Platelet Count 283 10^3/cmm (157-399); Red Blood Count 4.75 10^6/uL (3.85-5.65); Red Cell Distribution Width 17.6 % (12.1-15.1); White Blood Count 15.92 10^3/uL (3.29-11.43)
--- NOTE | 2024-02-09 18:12 | ED_ITS ---
HPI - General Adult 2 General: Chief complaint: General Medical Stated complaint: SOB Time Seen by Provider: 02/09/24 17:42 Source: patient Mode of arrival: ambulatory Limitations: no limitations History of Present Illness: 38-year-old female has a history of glio blastoma she has been on dexamethasone for the last 2 weeks she states that she has felt bloated she has been having shortness of breath over the last week as well. She states she had had headaches they have improved she states she felt like she may have had a seizure today but is unsure does have a headache but rates it a 2 out of 10. Patient denies any fever or cough. Denies any chest pain Associated symptoms: Reports dyspnea and headache(s); Deny chest pain, nausea, rash or vomiting Related Data Home Medications Medication Instructions Recorded Confirmed albuterol sulfate 90 mcg/actuation 2 puff inhalation Q6H PRN 10/30/23 02/01/24 aerosol inhaler Previous Rx's Medication Instructions Recorded ondansetron 4 mg disintegrating 4 mg PO Q6H PRN moderate nausea 11/09/23 tablet and vomiting #30 tabs prochlorperazine maleate 10 mg 10 mg PO Q6H PRN mild nausea and 11/09/23 tablet vomiting #30 tabs citalopram 20 mg tablet 20 mg PO DAILY #30 tabs 12/27/23 pantoprazole 40 mg tablet,delayed 40 mg PO DAILY #30 tabs 12/27/23 release (Protonix) dexamethasone 4 mg tablet 4 mg PO DAILY #14 tabs 01/22/24 dexamethasone 4 mg tablet 4 mg PO TID brain tumor 1 month 01/29/24 #90 tabs temozolomide 180 mg capsule 360 mg (2 x 180 mg) PO DAILY 5 02/01/24 days #10 caps cephalexin 500 mg capsule 500 mg PO TID 7 days #21 caps 02/09/24 Allergies Allergy/AdvReac Type Severity Reaction Status Date / Time No Known Allergies Allergy Verified 02/09/24 17:37 Review of Systems 2 Const: Denies: fever(s), chills, body aches or change in appetite Eyes: Denies: blurry vision or eye discomfort ENMT: Denies: throat pain or dental pain Card: Denies: chest pain Resp: Reports: dyspnea GI: Denies: abdominal pain, nausea, vomiting or diarrhea Musc: Denies: neck pain or back pain Skin/Breast: Denies: rash Neuro: Reports: headache(s) PFSH ED 2 PFSH: Medical History Asthma Glioblastoma Surgical History History of cholecystectomy Hx of tubal ligation History of craniotomy (08/29/23) right-sided craniotomy with tumor debulking Family History Father Esophageal cancer Family/Other Lung cancer Social History Smoking and tobacco/nicotine status: current some day tobacco/nicotine user cigarettes [ Other cigarette details: She previously smoked 1 PPD, but she is now down to 3 cigarettes/day.] Alcohol intake: current Alcohol intake frequency: 0-2 Drinks per Day Substance/Drug Use: former Former substance use details: She has a history of fentanyl and methamphetamine abuse. Female Reproductive History: Date of last menstrual period: 12/21/23 Physical Exam 2 Const: COMMON NORMALS: no acute distress, patient oriented x3 and healthy appearing HENMT: COMMON NORMALS: normocephalic and atraumatic HEAD & SCALP: n ormocephalic and atraumatic Eye: COMMON NORMALS: Equal, round and reactive pupils present and EOMs intact bilaterally PUPIL: Yes Equal, round and reactive pupils present Neck/C-Spine: COMMON NORMALS: full ROM and supple Chest: COMMONS NORMALS: normal inspection of the chest Resp: COMMON NORMALS: normal respiratory effort, No retractions, No use of accessory muscles and clear to auscultation bilaterally AUSCULTATION: clear to auscultation bilaterally Cardio: COMMON NORMALS: regular rate, regular rhythm and No murmurs present (Cardio) RATE: regular rate RHYTHM: regular rhythm Extremity: COMMON NORMALS: normal to inspection and full ROM Neuro: COMMON NORMALS: patient oriented x3, moves all extremities and no focal motor deficits Psych: COMMON NORMALS: mental status grossly normal, Normal thought process present and cooperative THOUGHT PROCESS: Normal thought process present Skin: COMMON NORMALS: no rashes or lesions noted and no wounds GENERAL SKIN EXAM: no rashes or lesions noted Course 2 Vital Signs: Vital signs: Vital Signs Temperature 98.0 F 02/09/24 17:34 Pulse Rate 91 02/09/24 19:13 Respiratory Rate 15 02/09/24 19:13 Blood Pressure 138/68 02/09/24 19:13 Pulse Oximetry 98 02/09/24 19:13 Oxygen Delivery Me thod Room Air 02/09/24 19:13 MDM - General Adult Medical Decision Making Patient presents here with dyspnea had a possible seizure she is unsure if she has been well-appearing here with blood work here is normal D-dimer is negative no signs of PE her head CT is unchanged she does have a UTI we will treat with antibiotic she is to follow-up with oncology return if worsening she understands agrees to plan Medical Records I reviewed the patient's medical records. Lab Data I reviewed the patient's lab results. 02/09/24 17:59 02/09/24 17:59 Radiology Impressions Chest X-Ray 02/09/24 18:09 IMPRESSION: No acute cardiopulmonary disease. Head CT 02/09/24 18:42 IMPRESSION: 1. No acute intracranial pathology. 2. Stable right frontal resection cavity with adjacent edema or gliosis. Laboratory Results WBC 15.92 10^3/uL (3.29-11.43) H 02/09/24 17:59 RBC 4.75 10^6/uL (3.85-5.65) 02/09/24 17:59 Hgb 13.50 g/dL (11.27-16.99) 02/09/24 17:59 Hct 41.0 % (36-47) 02/09/24 17:59 MCV 86.3 fl (85-98) 02/09/24 17:59 MCH 28.4 pg (27-33) 02/09/24 17:59 MCHC 32.9 g/dL (30-55) 02/09/24 17:59 RDW 17.6 % (12.1-15.1) H 02/09/24 17:59 Plt Count 283 10^3/cmm (157-399) 02/09/24 17:59 MPV 9.2 fL (7.4-10.4) 02/09/24 17:59 Neut % (Auto) 87.3 % 02/09/24 17:59 Lymph % (Auto) 5.6 % 02/09/24 17:59 [place] % (Auto) 4.6 % 02/09/24 17:59 Eos % (Auto) 0.0 % 02/09/24 17:59 Baso % (Auto) 0.1 % 02/09/24 17:59 Neut # (Auto) 13.90 10^3/uL (1.8-7.7) H 02/09/24 17:59 Lymph # (Auto) 0.9 10^3/uL (0.8-4.8) 02/09/24 17:59 [place] # (Auto) 0.7 10^3/uL (0.2-0.9) 02/09/24 17:59 Eos # (Auto) 0.0 10^3/uL (0.0-0.8) 02/09/24 17:59 Baso # (Auto) 0.0 10^3/uL (0.0-0.1) 02/09/24 17:59 Nucleated RBC % (auto) 0 % 02/09/24 17:59 Nucleated RBCs # 0.0 /100WBC 02/09/24 17:59 D-Dimer 0.34 ug/mLFEU (0-0.59) 02/09/24 17:59 Sodium 137 mmol/L (136-145) 02/09/24 17:59 Potassium 3.7 mmol/L (3.5-5.1) 02/09/24 17:59 Chloride 102 mmol/L (98-107) 02/09/24 17:59 Carbon Dioxide 16 mmol/L (22-29) L 02/09/24 17:59 Anion Gap 22.7 (5-19) H 02/09/24 17:59 BUN 25 mg/dL (6-20) H 02/09/24 17:59 Creatinine 0.7 mg/dL (0.5-0.9) 02/09/24 17:59 GFR Calculation 93.2 mL/min (90-130) 02/09/24 17:59 Glucose 153 mg/dL (65-115) H 02/09/24 17:59 Calculated Osmolality 291 mOsm/kg (285-295) 02/09/24 17:59 Calcium 8.4 mg/dL (8.5-10.5) L 02/09/24 17:59 Total Bilirubin 0.3 mg/dL (0.15-1.2) 02/09/24 17:59 AST 9 U/L (0-32) 02/09/24 17:59 ALT 21 U/L (0-33) 02/09/24 17:59 Alkaline Phosphatase 97 U/L (35-105) 02/09/24 17:59 Total Protein 6.4 g/dL (6.6-8.7) L 02/09/24 17:59 Albumin 3.9 g/dL (3.5-5.2) 02/09/24 17:59 Globulin 2.5 g/dL (1.3-4.6) 02/09/24 17:59 Lipase 77 U/L (13-60) H 02/09/24 17:59 Urine Color Yellow (Yellow) 02/09/24 18:27 Urine Appearance Clear (CLEAR) 02/09/24 18:27 Urine pH 5.5 (5-7) 02/09/24 18:27 Ur Specific [place] 1.028 (1.005-1.030) 02/09/24 18:27 Urine Protein Negative (Negative) 02/09/24 18:27 Urine Glucose (UA) Negative (Normal) 02/09/24 18: Urine Ketones Negative (Negative) 02/09/24 18: Urine Blood 3+ (Negative) A 02/09/24 18: Urine Nitrate Positive (Negative) A 02/09/24 18: Urine Bilirubin Negative (Negative) 02/09/24 18: Urine Urobilinogen 1.0 mg/dL (Negative) 02/09/24 18:27 Ur Leukocyte Esterase Negative (Negative) 02/09/24 18:27 Urine RBC 3-5 /hpf (0-2) 02/09/24 18:27 Urine WBC 11-20 /hpf (0-5) H 02/09/24 18:27 Ur Squamous Epith Cells 0-5 /hpf (0-5) 02/09/24 18: Amorphous Sediment Not Reportable 02/09/24 18:27 Urine Bacteria 1+ /hpf (NONE) H 02/09/24 18:27 Hyaline Casts 2.05 /lpf 02/09/24 18:27 All radiology interpretation(s) finalized by discharge EKG Data EKG 1: I personally reviewed and interpreted this EKG as follows: EKG interpretation date: 02/09/24 EKG interpretation time: 18:29 Interpretation: nsr hr [address] elevation qrs 80 qtc 394 Computer generated interpretation: Chest X-Ray 02/09/24 18:09 IMPRESSION: No acute cardiopulmonary disease. Head CT 02/09/24 18:42 IMPRESSION: 1. No acute intracranial pathology. 2. Stable right frontal resection cavity with adjacent edema or gliosis. Discharge Plan Discharge Patient Disposition: Home Clinical Impression: Acute cystitis, Acute dyspnea Condition: Stable Prescriptions: New cephalexin 500 mg capsule 500 mg PO TID 7 Days Qty: 21 0RF No Action albuterol sulfate 90 mcg/actuation HFA aerosol inhaler 2 puff inhalation Q6H PRN prochlorperazine maleate 10 mg tablet 10 mg PO Q6H PRN (Reason: mild nausea and vomiting) Qty: 30 3RF ondansetron 4 mg tablet,disintegrating 4 mg PO Q6H PRN (Reason: moderate nausea and vomiting) Qty: 30 3RF temozolomide 180 mg capsule 360 mg PO DAILY 5 Days Qty: 10 3RF Rx Instructions: must be taken on empty stomach Take on days 1-5, off for 21 days, of a 28 day cycle. pantoprazole [Protonix] 40 mg tablet,delayed release (DR/EC) 40 mg PO DAILY Qty: 30 3RF citalopram 20 mg tablet 20 mg PO DAILY Qty: 30 3RF dexamethasone 4 mg tablet 4 mg PO TID 30 Days Qty: 90 2RF dexamethasone 4 mg tablet 4 mg PO DAILY Qty: 14 0RF Discharge Orders: Discharge ED (Routine); Ordered 02/09/24 Ordered By: Trista Miles Discharge Diet: Advance as tolerated Discharge Activity: Resume usual activity Patient Instructions: Urinary Tract Infection in Women (ED) Coding Level of Care Code ED Parish Nurse for Raiza Carmona
--- NOTE | 2024-02-09 18:29 | ECG_ITS ---
[facility] Test Date: 2024-02-09 Pat Name: Jazmyne Mcmahan Department: Room: Gender: Female Environmental Intern: : 1985 Requested By: Trista Miles Order Number: [id number] Vivian MD: Rustam Alcazar M.D. Measurements Intervals [place] Rate: 83 P: 49 WA: 149 QRS: 38 QRSD: 80 T: 55 QT: 354 QTc: 418 Interpretive Statements SINUS RHYTHM No previous ECG available for comparison Electronically Signed On 02-11-2024 19:28:49 CDT by Rustam Alcazar M.D. [id number]
[2024-02-09 18:31] VITALS: PULSE 99; RESP 19; O2SAT 98
[2024-02-09 18:33] LABS: Alanine Aminotransferase 21 U/L (0-33); Albumin Level 3.9 g/dL (3.5-5.2); Alkaline Phosphatase 97 U/L (35-105); Anion Gap 22.7 (5-19); Aspartate Amino Transferase 9 U/L (0-32); Blood Urea Nitrogen 25 mg/dL (6-20); Calcium 8.4 mg/dL (8.5-10.5); Carbon Dioxide 16 mmol/L (22-29); Chloride 102 mmol/L (98-107); Creatinine Clr Calc Pharmacy 115.4308; Globulin 2.5 g/dL (1.3-4.6); Glomerular Filtration Rate 93.2 mL/min (90-130); Glucose 153 mg/dL (65-115); Lipase 77 U/L (13-60); Osmolality Calculated 291 mOsm/kg (285-295); Potassium 3.7 mmol/L (3.5-5.1); Sodium 137 mmol/L (136-145); Total Bilirubin 0.3 mg/dL (0.15-1.2); Total Protein 6.4 g/dL (6.6-8.7)
[2024-02-09 18:37] LABS: D Dimer 0.34 ug/mLFEU (0-0.59)
[2024-02-09 18:39] LABS: Bilirubin Urine Negative (Negative); Blood Urine 3+ (Negative); Glucose Urine UA Negative (Normal); Ketones Urine Negative (Negative); Leukocyte Esterase Urine Negative (Negative); Nitrate Urine Positive (Negative); Protein Urine Negative (Negative); Specific Gravity, Urine 1.028 (1.005-1.030); Urine Appearance Clear (CLEAR); Urine Color Yellow (Yellow); pH Urine 5.5 (5-7)
--- NOTE | 2024-02-09 18:42 | CTR_ITS ---
PROCEDURE INFORMATION: Exam: CT Head Without Contrast Exam date and time: 02/09/2024 6:47 PM Age: 38 years old Clinical indication: Other: Seizure activity; Prior surgery; Surgery date: 6+ months; Surgery type: Craniectomy; Patient HX: C/O possible seizure today. History of RT sided glioblastoma. TECHNIQUE: Imaging protocol: Computed tomography of the head without contrast. Radiation optimization: All CT scans at this facility use at least one of these dose optimization techniques: automated exposure control; mA and/or kV adjustment per patient size (includes targeted exams where dose is matched to clinical indication); or iterative reconstruction. COMPARISON: 1. MR head wo/w con [id number] 01/26/2024 1:[address] head wo con* [id number] 01/22/2024 6:22 PM RADIATION DOSE METRICS: Total DLP (mGy-cm): 1062.69 FINDINGS: Brain: No intracranial hemorrhage. No significant deep white matter abnormality. Complex right frontal cystic lesion with adjacent hypodensity, stable compared to prior imaging. Stable mass effect with downward displacement of the corpus callosum and borderline tonsillar herniation Cerebral ventricles: Mild mass effect on the right lateral ventricle with trace [id number] midline shift appears stable. Paranasal sinuses: The paranasal sinuses are clear. Mastoid air cells: The mastoid air cells are clear. Bones: Stable right frontal craniotomy changes. No acute osseous abnormalities are seen. Soft tissues: Unremarkable. CT/CT head wo con* [id number] IMPRESSION: 1. No acute intracranial pathology. 2. Stable right frontal resection cavity with adjacent edema or gliosis.
[2024-02-09 18:44] LABS: Add Urine Microscopic? YES; Bacteria Urine 1+ /hpf; Hyaline Casts Urine 2.05 /lpf; Squamous Epithelial Cell Urine 0-5 /hpf (0-5)
[2024-02-09] MEDS: metoclopramide 5 mg/mL SDV 2 mL 10 MG IVP (19:03)
[2024-02-09] MEDS: cefTRIAXone 1,000 mg SDV 1000 MG IVP (19:04)
[2024-02-09] MEDS: diphenhydrAMINE 50 mg/mL SDV 1mL IVP (19:04)
[2024-02-09 19:13] VITALS: BP 138/68; PULSE 91; RESP 15; O2SAT 98
[2024-02-09 19:29] VITALS: BP 115/81; PULSE 84; O2SAT 98
== END 2024-02-09 19:18 | disposition home or self-care (01) ==
PROVIDERS: Emergency Provider Emergency Medicine
DX: N30.00 Acute cystitis without hematuria (principal); R06.00 Dyspnea, unspecified; F17.210 Nicotine dependence, cigarettes, uncomplicated
CPT/HCPCS: 36415; 70450; 71045; 80053; 81001; 83690; 85025; 85378; 93005; 96374; 96375; 99285; J0696; J1200; J2765

== ENCOUNTER 2024-02-22 14:41 | Emergency (ER) | payer OTHER, SELFPAY ==
--- NOTE | 2024-02-22 14:43 | CT_ITS ---
WS: [id number] CT HEAD NONCONTRAST HISTORY: head injury TECHNIQUE: Contiguous axial imaging performed through the brain. Bone and soft tissue windows. Sagitt al and coronal reformats reviewed. All CT scans at [facility] use at least one of these dose optimization techniques: automated exposure control; mA and/or kV adjustment per patient size (includ es targeted exams where dose is matched to clinical indication); or iterative reconstruction. DLP: 1052.18 mGy.cm COMPARISON: 02/09/2024, 01/22/2024 No acute intracranial hemorrhage, midline shift or mass effect. No significant atrophy. Reidentified is a area of decreased signal centered in the RIGHT frontal lobe measuring 5.0 x 3.8 x 4.3 cm. By history patient has undergone surgery for prior glioblastoma. There is just very slight bowing of the anterior interhemispheric falx to the LEFT. There is also slight m ass effect upon the anterior horn of the RIGHT lateral ventricle. Fourth ventricle is patent. Ventricles: Normal size with no hydrocephalus. Very slight crowding of the posterior fossa. Similar to prior studies. Paranasal sinuses: As visualized are clear. Mastoid air cells: Well pneumatized. Calvarium and scalp: Large RIGHT frontal craniotomy. CT/CT head wo con* [id number] IMPRESSION: 1. No acute intracranial hemorrhage or edema. 2. Prior RIGHT frontal craniotomy is unchanged. 3. Low-attenuation mass centered in the RIGHT frontal lobe measures 5.0 x 3.8 x 4.3 cm. Very slight bowing of the anterior interhemispheric falx to the LEFT. There is also mild mass effect upon the anterior horn of the RIGHT lateral prabhu tricle.
[2024-02-22 14:54] VITALS: BP 128/89; PULSE 85; RESP 16; TEMP 36.7; O2SAT 100; BMI 34.1
--- NOTE | 2024-02-22 17:39 | W.ED.SEIZURE ---
HPI - Seizure General: Chief Complaint: Seizure Stated Complaint: fell hit head Time Seen by Provider: 02/22/24 17:35 History of Present Illness: HPI Narrative: 38-year-old female with a known history of brain tumor had a seizure today and passed out she did hit her head. She has been nauseous since then. Patient has a history of glioblastoma multiforme that was diagnosed in August of this year she had her resection of this. She had been on dexamethasone at 4 mg 3 times a day but did not tolerate that and stopped that about 2 weeks ago. She is currently receiving oral chemotherapy agents. At this time she is awake and alert has passed her postictal phase has no further symptoms. Associated symptoms: Deny chest pain, chills or fever(s) Related Data Home Medications Medication Instructions Recorded Confirmed albuterol sulfate 90 mcg/actuation 2 puff inhalation Q6H PRN 10/30/23 02/20/24 aerosol inhaler cephalexin 500 mg capsule 500 mg PO TID 02/20/24 02/20/24 Previous Rx's Medication Instructions Recorded ondansetron 4 mg disintegrating 4 mg PO Q6H PRN moderate nausea 11/09/23 tablet and vomiting #30 tabs prochlorperazine maleate 10 mg 10 mg PO Q6H PRN mild nausea and 11/09/23 tablet vomiting #30 tabs citalopram 20 mg tablet 20 mg PO DAILY #30 tabs 12/27/23 pantoprazole 40 mg tablet,delayed 40 mg PO DAILY #30 tabs 12/27/23 release (Protonix) temozolomide 180 mg capsule 360 mg (2 x 180 mg) PO DAILY 5 02/01/24 days #10 caps dexamethasone 2 mg tablet 2 mg PO TID #60 tabs 02/22/24 Allergies Allergy/AdvReac Type Severity Reaction Status Date / Time No Known Allergies Allergy Verified 02/20/24 13:56 Review of Systems Const: Denies: fever(s) or chills Card: Denies: chest pain Resp: Denies: dyspnea GI: Denies: abdominal pain : Denies: dysuria, urinary frequency or urinary urgency Musc: Denies: neck pain or back pain Skin/Breast: Denies: rash PFSH ED PFSH: Medical History Asthma Glioblastoma Surgical History History of cholecystectomy Hx of tubal ligation History of craniotomy (08/29/23) right-sided craniotomy with tumor debulking Family History Father Esophageal cancer Family/Other Lung cancer Social History Smoking and tobacco/nicotine status: current some day tobacco/nicotine user cigarettes [ Other cigarette details: She previously smoked 1 PPD, but she is now down to 3 cigarettes/day.] Alcohol intake: current Alcohol intake frequency: 0-2 Drinks per Day Substance/Drug Use: former Former substance use details: She has a history of fentanyl and methamphetamine abuse. Physical Exam Const: COMMON NORMALS: no acute distress GENERAL APPEARANCE: cooperative and comfortable ORIENTATION/CONSCIOUSNESS: Yes awake, Yes oriented to person, Yes oriented to place and Yes oriented to time HENMT: COMMON NORMALS: normocephalic and hearing grossly normal bilaterally HEAD & SCALP: normocephalic OTHER: Deformity of the scalp from previous craniotomy. No bulging nontender. Resp: COMMON NORMALS: normal respiratory effort, No retractions, No use of accessory muscles and clear to auscultation bilaterally AUSCULTATION: clear to auscultation bilaterally Cardio: COMMON NORMALS: regular rate, regular rhythm and No murmurs present (Cardio) RATE: regular rate RHYTHM: regular rhythm GI: COMMON NORMALS: Soft to palpation and No hepatosplenomegaly present AUSCULTATION: Yes normoactive bowel sounds PALPATION: Yes Soft to palpation, No Tenderness to palpation present (GI), No Guarding due to palpation present (GI) and Yes No hepatosplenomegaly present Extremity: COMMON NORMALS: normal to inspection, capillary refill normal, no clubbing, cyanosis or edema, no calf tenderness and no pedal edema Neuro: SENSORIUM/ORIENTATION: Yes oriented to person, Yes oriented to place and Yes oriented to time Skin: COMMON NORMALS: no rashes or lesions noted GENERAL SKIN EXAM: no rashes or lesions noted Course Vital Signs: Vital signs: Vital Signs Temperature 98.0 F 02/22/24 14:54 Pulse Rate 75 02/22/24 18:39 Respiratory Rate 16 02/22/24 14:54 Blood Pressure 142/88 02/22/24 18:39 Pulse Oximetry 98 02/22/24 18:39 Oxygen Delivery Me thod Room Air 02/22/24 18:03 MDM - Seizure MDM Narrative Medical decision making narrative: CT of the head did not show significant abnormality. Patient is otherwise awake and alert. At this point patient can be discharged home. Will restart the dexamethasone 2 mg 3 times daily. Will also make arrangements for her to follow-up with neurology for consideration of antiseizure medications. Return if has further problems. Medical Records Attestation: I reviewed the patient's medical records. Lab Data Attestation: I reviewed the patient's lab results. Lab results narrative: Labs reviewed from previous lab work done Labs: Radiology Impressions Head CT 02/22/24 14:43 IMPRESSION: 1. No acute intracranial hemorrhage or edema. 2. Prior RIGHT frontal craniotomy is unchanged. 3. Low-attenuation mass centered in the RIGHT frontal lobe measures 5.0 x 3.8 x 4.3 cm. Very slight bowing of the anterior interhemispheric falx to the LEFT. There is also mild mass effect upon the anterior horn of the RIGHT lateral ventricle. All radiology interpretation(s) finalized by discharge Discharge Plan Discharge Patient Disposition: Home Clinical Impression: Glioblastoma multiforme of frontal lobe, Generalized seizure Condition: Stable Prescriptions: New dexamethasone 2 mg tablet 2 mg PO TID Qty: 60 0RF Discontinued dexamethasone 4 mg tablet 4 mg PO TID 30 Days Qty: 90 2RF dexamethasone 4 mg tablet 4 mg PO DAILY Qty: 14 0RF No Action albuterol sulfate 90 mcg/actuation HFA aerosol inhaler 2 puff inhalation Q6H PRN prochlorperazine maleate 10 mg tablet 10 mg PO Q6H PRN (Reason: mild nausea and vomiting) Qty: 30 3RF ondansetron 4 mg tablet,disintegrating 4 mg PO Q6H PRN (Reason: moderate nausea and vomiting) Qty: 30 3RF temozolomide 180 mg capsule 360 mg PO DAILY 5 Days Qty: 10 3RF Rx Instructions: must be taken on empty stomach Take on days 1-5, off for 21 days, of a 28 day cycle. pantoprazole [Protonix] 40 mg tablet,delayed release (DR/EC) 40 mg PO DAILY Qty: 30 3RF citalopram 20 mg tablet 20 mg PO DAILY Qty: 30 3RF cephalexin 500 mg capsule 500 mg PO TID Patient Comments: for 7 days Discharge Orders: Discharge ED (Routine); Ordered 02/22/24 Ordered By: Eddie Ann Discharge Diet: Usual diet Discharge Activity: Increase activity as tolerated Patient Instructions: Opioid Safety, Pain Management Activity Restrictions/Additional Instructions: Thank you for choosing [facility] for your healthcare needs today. It is very important that you follow up as instructed or that you return to the Emergency Department should you have concerns or if your condition changes or worsens in any way. You were seen today after a fall. He would also report having had a seizure. CT of your head was negative. Recommend you restart dexamethasone 2 mg 3 times daily. Will set you up to see neurology as well regarding the seizure to see if they feel you should be started on antiseizure medicines. Coding Level of Care Code ED Report Developer for Raiza Carmona
[2024-02-22 18:03] VITALS: BP 138/72; PULSE 73; O2SAT 99
[2024-02-22 18:39] VITALS: BP 142/88; PULSE 75; O2SAT 98
--- NOTE | 2024-02-23 04:39 | DCPLANNER ---
Message sent to neurology for follow up
== END 2024-02-22 18:42 | disposition home or self-care (01) ==
PROVIDERS: Emergency Provider Family Medicine
DX: C71.1 Malignant neoplasm of frontal lobe (principal); G40.89 Other seizures; F17.210 Nicotine dependence, cigarettes, uncomplicated
CPT/HCPCS: 70450; 99284

== ENCOUNTER 2024-03-12 13:00 | Oncology outpatient (recurring) (ONCR) | payer OTHER, SELFPAY ==
[2024-02-20 13:09] LABS: Basophils % 0.4 %; Eosinophils # 0.1 10^3/uL (0.0-0.8); Hematocrit 38.7 % (36-47); Lymphocytes # 0.8 10^3/uL (0.8-4.8); Lymphocytes % 16.5 %; Mean Corpuscular HGB Conc 32.8 g/dL (30-55); Mean Corpuscular Volume 88.4 fl (85-98); Mean Platelet Volume 9.1 fL (7.4-10.4); Monocytes # 0.3 10^3/uL (0.2-0.9); Monocytes % 6.3 %; Neutrophils # 3.61 10^3/uL (1.8-7.7); Neutrophils % 75.4 %; Nucleated Red Blood Cells % 0 %; Platelet Count 201 10^3/cmm (157-399); Red Blood Count 4.38 10^6/uL (3.85-5.65); Red Cell Distribution Width 15.7 % (12.1-15.1); White Blood Count 4.79 10^3/uL (3.29-11.43)
[2024-02-20 13:25] LABS: Alanine Aminotransferase 36 U/L (0-33); Albumin Level 3.9 g/dL (3.5-5.2); Alkaline Phosphatase 48 U/L (35-105); Anion Gap 14.7 (5-19); Aspartate Amino Transferase 17 U/L (0-32); Blood Urea Nitrogen 11 mg/dL (6-20); Calcium 8.4 mg/dL (8.5-10.5); Carbon Dioxide 23 mmol/L (22-29); Chloride 109 mmol/L (98-107); Globulin 2.7 g/dL (1.3-4.6); Glomerular Filtration Rate 93.2 mL/min (90-130); Glucose 151 mg/dL (65-115); Osmolality Calculated 298 mOsm/kg (285-295); Potassium 3.7 mmol/L (3.5-5.1); Sodium 143 mmol/L (136-145); Total Bilirubin 0.3 mg/dL (0.15-1.2); Total Protein 6.6 g/dL (6.6-8.7)
[2024-03-12 13:31] LABS: Basophils % 0.2 %; Hematocrit 41.1 % (36-47); Lymphocytes # 1.1 10^3/uL (0.8-4.8); Lymphocytes % 8.4 %; Mean Corpuscular HGB Conc 33.3 g/dL (30-55); Mean Corpuscular Hemoglobin 29.7 pg (27-33); Mean Platelet Volume 9.8 fL (7.4-10.4); Monocytes # 0.4 10^3/uL (0.2-0.9); Monocytes % 2.9 %; Neutrophils % 87.5 %; Nucleated Red Blood Cells % 0 %; Platelet Count 289 10^3/cmm (157-399); Red Blood Count 4.62 10^6/uL (3.85-5.65); Red Cell Distribution Width 14.9 % (12.1-15.1); White Blood Count 13.15 10^3/uL (3.29-11.43)
[2024-03-12 13:49] LABS: Alanine Aminotransferase 15 U/L (0-33); Albumin Level 4.1 g/dL (3.5-5.2); Alkaline Phosphatase 63 U/L (35-105); Anion Gap 13.8 (5-19); Aspartate Amino Transferase 11 U/L (0-32); Blood Urea Nitrogen 18 mg/dL (6-20); Calcium 8.9 mg/dL (8.5-10.5); Carbon Dioxide 26 mmol/L (22-29); Chloride 103 mmol/L (98-107); Globulin 2.8 g/dL (1.3-4.6); Glomerular Filtration Rate 93.2 mL/min (90-130); Glucose 93 mg/dL (65-115); Osmolality Calculated 290 mOsm/kg (285-295); Potassium 3.8 mmol/L (3.5-5.1); Sodium 139 mmol/L (136-145); Total Bilirubin 0.2 mg/dL (0.15-1.2); Total Protein 6.9 g/dL (6.6-8.7)
== END 2024-03-21 23:59 | disposition home or self-care (01) ==
PROVIDERS: Internal Medicine Medical Oncology; Nurse Practitioner Family; Visit Provider Radiology Radiation Oncology
DX: C17.1 Malignant neoplasm of jejunum (principal); Z53.9 Procedure and treatment not carried out, unspecified reason
CPT/HCPCS: 36415; 80053; 85025

== ENCOUNTER 2024-04-15 16:48 | Oncology outpatient (recurring) (ONCR) | payer OTHER, SELFPAY ==
[2024-04-09 11:52] LABS: Basophils % 0.1 %; Eosinophils # 0.1 10^3/uL (0.0-0.8); Hematocrit 37.2 % (36-47); Lymphocytes # 1.8 10^3/uL (0.8-4.8); Lymphocytes % 21.6 %; Mean Corpuscular HGB Conc 33.9 g/dL (30-55); Mean Corpuscular Hemoglobin 29.6 pg (27-33); Mean Corpuscular Volume 87.5 fl (85-98); Mean Platelet Volume 9.4 fL (7.4-10.4); Monocytes # 0.5 10^3/uL (0.2-0.9); Monocytes % 5.7 %; Neutrophils # 5.83 10^3/uL (1.8-7.7); Neutrophils % 71.1 %; Nucleated Red Blood Cells % 0 %; Platelet Count 222 10^3/cmm (157-399); Red Blood Count 4.25 10^6/uL (3.85-5.65); Red Cell Distribution Width 15.2 % (12.1-15.1)
[2024-04-09 12:13] LABS: Alanine Aminotransferase 16 U/L (0-33); Albumin Level 4.1 g/dL (3.5-5.2); Alkaline Phosphatase 49 U/L (35-105); Anion Gap 16.5 (5-19); Aspartate Amino Transferase 11 U/L (0-32); Blood Urea Nitrogen 14 mg/dL (6-20); Calcium 8.5 mg/dL (8.5-10.5); Carbon Dioxide 21 mmol/L (22-29); Chloride 104 mmol/L (98-107); Creatinine Clr Calc Pharmacy 121.3026; Globulin 2.6 g/dL (1.3-4.6); Glomerular Filtration Rate 93.2 mL/min (90-130); Glucose 112 mg/dL (65-115); Osmolality Calculated 287 mOsm/kg (285-295); Potassium 3.5 mmol/L (3.5-5.1); Sodium 138 mmol/L (136-145); Total Bilirubin 0.3 mg/dL (0.15-1.2); Total Protein 6.7 g/dL (6.6-8.7)
--- NOTE | 2024-04-15 17:00 | MR_ITS ---
WS: [id number] MRI HEAD WITH CONTRAST TECHNIQUE: Sagittal T1, T2 axial, T2 axial FLAIR, axial susceptibility weighted imaging, axial diffus ion weighted images, and coronal T2 images were obtained. Pre and post-T1 axial and post T1 coronal i mages. ADC and FSPGR images. CLINICAL INFORMATION: glioblastoma multiforme of frontal lobe COMPARISON: MRI 01/26/2024 FINDINGS: Prior postoperative changes RIGHT frontal craniotomy with resection cavity in the RIGHT frontal lobe. Resection cavity measures approximately 5.2 x 4.3 cm with peripheral enhancement likely postoperativ e. Surrounding nonenhancing T2 signal abnormality presumably due to treatment related changes. This h as increased since 01/26/2024. Associated mass effect on the RIGHT lateral ventricle. RIGHT to LEFT mid line shift measures approximately 5 mm. No significant hydrocephalus. Mass effect with compression of the third ventricle. Fourth ventricle remains patent. Small amount of blood products in the resectio n cavity. Normal optic chiasm and pituitary infundibulum. Supratentorial mass effect with mild crowding at the foramen magnum appears appears similar to 01/26/2024 Paranasal sinuses and mastoid air cells are well aerated. Normal posterior nasopharynx. Normal vascul ar flow voids at the skull base. MR/MR head wo/w con [id number] IMPRESSION: 1. Large RIGHT frontal resection cavity with peripheral enhancement and resolv ing blood products in the resection cavity. 2. Increasing surrounding nonenhancing T2 hyperintensity likely due to treatme nt-related changes. Increased mass effect on the RIGHT lateral ventricle and fr ontal horn with RIGHT to LEFT midline shift measuring 5 mm. Patient at risk for ventricular trapping. No significant hydrocephalus. 3. Supratentorial mass effect with downward displacement of the cerebellar ton sils and mild crowding of the foramen magnum appears similar to 01/26/2024. Fourt h ventricle remains patent. 4. No other significant interval changes.
[2024-04-15] MEDS: gadobenate dimeglumine 20 mL vial 19 ML IV (17:41)
== END 2024-04-20 23:59 | disposition home or self-care (01) ==
LOC: RAD 16:48 → ONCMED 04-16 10:12
PROVIDERS: Nurse Practitioner Family; Visit Provider Internal Medicine Medical Oncology
DX: C71.1 Malignant neoplasm of frontal lobe; Z98.890 Other specified postprocedural states
CPT/HCPCS: 36415; 70553; 80053; 85025

== ENCOUNTER 2024-05-07 12:30 | Oncology outpatient (recurring) (ONCR) | payer OTHER, SELFPAY ==
[2024-04-23 13:40] LABS: Basophils % 0.2 %; Eosinophils # 0.1 10^3/uL (0.0-0.8); Eosinophils % 2.1 %; Hematocrit 37.7 % (36-47); Lymphocytes # 0.8 10^3/uL (0.8-4.8); Lymphocytes % 17.1 %; Mean Corpuscular HGB Conc 34.5 g/dL (30-55); Mean Corpuscular Hemoglobin 31.3 pg (27-33); Mean Corpuscular Volume 90.6 fl (85-98); Mean Platelet Volume 9.4 fL (7.4-10.4); Monocytes # 0.5 10^3/uL (0.2-0.9); Monocytes % 9.7 %; Neutrophils # 3.41 10^3/uL (1.8-7.7); Neutrophils % 70.5 %; Nucleated Red Blood Cells % 0 %; Platelet Count 341 10^3/cmm (157-399); Red Blood Count 4.16 10^6/uL (3.85-5.65); Red Cell Distribution Width 15.8 % (12.1-15.1); White Blood Count 4.84 10^3/uL (3.29-11.43)
[2024-04-23 13:59] LABS: Alanine Aminotransferase 16 U/L (0-33); Albumin Level 3.9 g/dL (3.5-5.2); Alkaline Phosphatase 44 U/L (35-105); Anion Gap 16.4 (5-19); Aspartate Amino Transferase 14 U/L (0-32); Blood Urea Nitrogen 9 mg/dL (6-20); Calcium 9.1 mg/dL (8.5-10.5); Carbon Dioxide 23 mmol/L (22-29); Chloride 104 mmol/L (98-107); Globulin 2.7 g/dL (1.3-4.6); Glomerular Filtration Rate 110.7 mL/min (90-130); Glucose 92 mg/dL (65-115); Osmolality Calculated 288 mOsm/kg (285-295); Potassium 3.4 mmol/L (3.5-5.1); Sodium 140 mmol/L (136-145); Total Bilirubin 0.4 mg/dL (0.15-1.2); Total Protein 6.6 g/dL (6.6-8.7)
[2024-05-07 13:35] LABS: Basophils % 0.1 %; Lymphocytes # 0.6 10^3/uL (0.8-4.8); Lymphocytes % 3.6 %; Mean Corpuscular Hemoglobin 31.1 pg (27-33); Mean Platelet Volume 9.4 fL (7.4-10.4); Monocytes # 0.3 10^3/uL (0.2-0.9); Monocytes % 1.8 %; Neutrophils # 15.45 10^3/uL (1.8-7.7); Neutrophils % 94.1 %; Nucleated Red Blood Cells % 0 %; Platelet Count 264 10^3/cmm (157-399); Red Blood Count 4.27 10^6/uL (3.85-5.65); White Blood Count 16.42 10^3/uL (3.29-11.43)
[2024-05-07 13:52] LABS: Alanine Aminotransferase 15 U/L (0-33); Albumin Level 4.1 g/dL (3.5-5.2); Alkaline Phosphatase 57 U/L (35-105); Anion Gap 15.7 (5-19); Aspartate Amino Transferase 13 U/L (0-32); Blood Urea Nitrogen 11 mg/dL (6-20); Calcium 9.4 mg/dL (8.5-10.5); Carbon Dioxide 23 mmol/L (22-29); Chloride 104 mmol/L (98-107); Creatinine Clr Calc Pharmacy 105.4573; Globulin 2.8 g/dL (1.3-4.6); Glomerular Filtration Rate 79.4 mL/min (90-130); Glucose 99 mg/dL (65-115); Osmolality Calculated 287 mOsm/kg (285-295); Potassium 3.7 mmol/L (3.5-5.1); Sodium 139 mmol/L (136-145); Total Bilirubin 0.4 mg/dL (0.15-1.2); Total Protein 6.9 g/dL (6.6-8.7)
== END 2024-05-21 23:59 | disposition home or self-care (01) ==
PROVIDERS: Absent Provider Internal Medicine Medical Oncology; Visit Provider Internal Medicine Medical Oncology
DX: C71.1 Malignant neoplasm of frontal lobe (principal); Z53.9 Procedure and treatment not carried out, unspecified reason
CPT/HCPCS: 36415; 80053; 85025

== ENCOUNTER 2024-06-04 12:18 | Oncology outpatient (recurring) (ONCR) | payer OTHER, SELFPAY ==
[2024-06-04 12:39] LABS: Basophils % 0.4 %; Eosinophils # 0.1 10^3/uL (0.0-0.8); Lymphocytes % 21.8 %; Mean Corpuscular HGB Conc 33.9 g/dL (30-55); Mean Corpuscular Hemoglobin 31.8 pg (27-33); Mean Corpuscular Volume 93.8 fl (85-98); Mean Platelet Volume 8.9 fL (7.4-10.4); Monocytes # 0.3 10^3/uL (0.2-0.9); Monocytes % 6.7 %; Neutrophils # 3.04 10^3/uL (1.8-7.7); Neutrophils % 68.4 %; Nucleated Red Blood Cells % 0 %; Platelet Count 205 10^3/cmm (157-399); Red Blood Count 3.84 10^6/uL (3.85-5.65); Red Cell Distribution Width 14.5 % (12.1-15.1); White Blood Count 4.45 10^3/uL (3.29-11.43)
[2024-06-04 13:00] LABS: Alanine Aminotransferase 16 U/L (0-33); Albumin Level 3.8 g/dL (3.5-5.2); Alkaline Phosphatase 50 U/L (35-105); Anion Gap 10.3 (5-19); Aspartate Amino Transferase 11 U/L (0-32); Blood Urea Nitrogen 11 mg/dL (6-20); Calcium 9.1 mg/dL (8.5-10.5); Carbon Dioxide 27 mmol/L (22-29); Chloride 104 mmol/L (98-107); Globulin 2.5 g/dL (1.3-4.6); Glomerular Filtration Rate 110.7 mL/min (90-130); Glucose 88 mg/dL (65-115); Osmolality Calculated 285 mOsm/kg (285-295); Potassium 3.3 mmol/L (3.5-5.1); Sodium 138 mmol/L (136-145); Total Bilirubin 0.2 mg/dL (0.15-1.2); Total Protein 6.3 g/dL (6.6-8.7)
== END 2024-06-21 23:59 | disposition home or self-care (01) ==
PROVIDERS: Absent Provider Internal Medicine Medical Oncology; Visit Provider Internal Medicine Medical Oncology
DX: C71.1 Malignant neoplasm of frontal lobe (principal)
CPT/HCPCS: 36415; 80053; 85025

== ENCOUNTER 2024-07-16 13:55 | Oncology outpatient (recurring) (ONCR) | payer OTHER, SELFPAY ==
--- NOTE | 2024-07-08 13:45 | MR_ITS ---
WS: [id number] MRI HEAD WITH CONTRAST TECHNIQUE: Sagittal T1, T2 axial, T2 axial FLAIR, axial susceptibility weighted imaging, axial diffusion weighted images, and coronal T2 images were obtained. Pre and post-T1 axial and post T1 coronal images. ADC and FSPGR images. CLINICAL INFORMATION: compare to previous; glioblastoma COMPARISON: None. FINDINGS: Prior postoperative changes RIGHT frontal craniotomy with resection cavity in the RIGHT frontal lobe. Resection cavity measures approximately 4.5 x 4.1 cm slightly smaller today with stable peripheral enhancement. Surrounding nonenhancing T2 signal abnormality presumably due to treatment related has increased slightly since 04/15/2024 but overall not significantly changed. Associated mass effect on the RIGHT lateral ventricle. RIGHT to LEFT midline shift measures approximately 4-5 mm stable compared to previous. Mass effect with compression of the third ventricle is similar in appearance. No hydrocephalus. Fourth ventricle remains patent. Supratentorial mass effect with partial effacement of the suprasellar cistern appears slightly increased but not significantly changed. Normal optic chiasm and pituitary infundibulum. Supratentorial mass effect with mild crowding at the foramen magnum also appears similar to the prior studies. Normal vascular flow voids at the skull base. Mastoid air cells well aerated. Paranasal sinuses are well aerated. No other significant changes. MR/MR head wo/w con [id number] IMPRESSION: 1. Stable resection cavity RIGHT frontal lobe with peripheral enhancement. Res ection cavity measures slightly smaller today. 2. Stable surrounding nonenhancing T2 signal abnormality presumably due to destiny atment-related changes appears minimally increased but not significantly change d. 3. Stable compression of the RIGHT lateral ventricle with 4 to 5 mm RIGHT to L EFT midline shift. 4. Stable mild effacement of the ambient cisterns 5. Crowding of the suprasellar cistern due to supratentorial mass appears slig htly increased compared to previous studies. Overall slightly increased suprate ntorial mass effect. 6. Crowding of the foramen magnum with mild tonsillar herniation appears stabl e compared to previous 7. No other significant interval changes.
[2024-07-08] MEDS: gadobenate dimeglumine 20 mL vial IV (14:52)
[2024-07-16 14:32] LABS: Basophils % 0.2 %; Eosinophils % 0.2 %; Hematocrit 37.4 % (36-47); Lymphocytes # 0.7 10^3/uL (0.8-4.8); Lymphocytes % 7.1 %; Mean Corpuscular HGB Conc 33.7 g/dL (30-55); Mean Corpuscular Hemoglobin 30.9 pg (27-33); Mean Corpuscular Volume 91.7 fl (85-98); Mean Platelet Volume 9.4 fL (7.4-10.4); Monocytes # 0.4 10^3/uL (0.2-0.9); Monocytes % 3.9 %; Neutrophils # 9.13 10^3/uL (1.8-7.7); Nucleated Red Blood Cells % 0 %; Platelet Count 277 10^3/cmm (157-399); Red Blood Count 4.08 10^6/uL (3.85-5.65); Red Cell Distribution Width 13.2 % (12.1-15.1); White Blood Count 10.38 10^3/uL (3.29-11.43)
[2024-07-16 14:51] LABS: Alanine Aminotransferase 84 U/L (0-33); Alkaline Phosphatase 70 U/L (35-105); Anion Gap 16.4 (5-19); Aspartate Amino Transferase 79 U/L (0-32); Blood Urea Nitrogen 11 mg/dL (6-20); Calcium 8.9 mg/dL (8.5-10.5); Carbon Dioxide 24 mmol/L (22-29); Chloride 102 mmol/L (98-107); Creatinine Clr Calc Pharmacy 123.1616; Globulin 2.5 g/dL (1.3-4.6); Glomerular Filtration Rate 92.7 mL/min (90-130); Glucose 113 mg/dL (65-115); Osmolality Calculated 288 mOsm/kg (285-295); Potassium 3.4 mmol/L (3.5-5.1); Sodium 139 mmol/L (136-145); Total Bilirubin 0.5 mg/dL (0.15-1.2); Total Protein 6.5 g/dL (6.6-8.7)
== END 2024-07-19 23:59 | disposition home or self-care (01) ==
PROVIDERS: Absent Provider Internal Medicine Medical Oncology; Visit Provider Nurse Practitioner
DX: C71.1 Malignant neoplasm of frontal lobe; Z53.9 Procedure and treatment not carried out, unspecified reason
CPT/HCPCS: 36415; 70553; 80053; 85025; A9577

== ENCOUNTER 2024-10-10 20:00 | Emergency (ER) | payer BC, MEDICAID, SELFPAY ==
[2024-10-10 20:04] VITALS: BP 121/75; PULSE 80; RESP 16; TEMP 36.6; O2SAT 100; BMI 35.7
--- NOTE | 2024-10-10 20:12 | ECG_ITS ---
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 Measurements Intervals [place] Rate: 76 P: 49 TX: 156 QRS: 19 QRSD: 104 T: 16 QT: 377 QTc: 426 Interpretive Statements SINUS RHYTHM Compared to ECG 02/09/2024 18:29:57 No significant changes Electronically Signed On 10-11-2024 16:33:36 CDT by Rustam Alcazar M.D. [email or web address]
== END 2024-10-10 23:01 | disposition left against medical advice (07) ==
PROVIDERS: Emergency Provider Family Medicine
DX: Z53.21 Procedure and treatment not carried out due to patient leaving prior to being seen by health care provider (principal); S16.1XXA Strain of muscle, fascia and tendon at neck level, initial encounter; F17.210 Nicotine dependence, cigarettes, uncomplicated; X58.XXXA Exposure to other specified factors, initial encounter
CPT/HCPCS: 93005

== ENCOUNTER 2024-10-11 13:41 | Emergency (ER) | payer BC, MEDICAID, SELFPAY ==
[2024-10-11 13:43] VITALS: BP 116/83; PULSE 77; RESP 17; TEMP 36.7; O2SAT 100; BMI 35.7
--- NOTE | 2024-10-11 14:00 | ED_ITS ---
HPI - Neck Pain/Injury General: Chief Complaint: Neck Pain/Injury Stated Complaint: neck pain Time Seen by Provider: 10/11/24 13:49 Source: patient and family Mode of arrival: ambulatory Limitations: no limitations History of Present Illness: Patient is a 39-year-old female presents to ED today with complaint of neck pain over the past few days. She is undergoing care through our [facility] for treatment of glioblastoma. Patient denies any injury or trauma to the neck. She is not having any radicular upper extremity symptoms. No fevers. She states she has been sleeping on a bed of poor quality and wonders if this could be contributing to her discomfort. Denies any decreased range of motion of the neck. MD complaint: neck pain Onset (ago): day(s) Place: home Severity: moderate Relieving factors: rest supine and remaining still Exacerbating factors: movement of neck Associated symptoms: Denies headache(s) or nausea Related Data Home Medications ?Medication ?Instructions ?Recorded ?Confirmed albuterol sulfate 90 mcg/actuation 2 puff inhalation Q 6H PRN 10/30/23 10/11/24 aerosol inhaler Shortness Of Breath Or Wheez ing acetaminophen 500 mg tablet 1,000 mg PO Q6H PRN Fever Or Pain 10/11/24 10/11/24 (Tylenol Extra Strength) ibuprofen 200 mg tablet (Advil) 1,000 mg PO Q6H PRN Fe nela Or Pain 10/11/24 10/11/24 Previous Rx's ?Medication ?Instructions ?Recorded temozolomide 180 mg capsule 360 mg (2 x 180 mg) PO LY 5 10/02/24 days #10 caps methocarbamol 500 mg tablet 1,000 mg (2 x 500 mg) PO Q 8H #30 10/11/24 tabs tramadol 50 mg tablet 50 mg PO Q6H PRN pain #14 ta bs 10/11/24 Allergies Allergy/AdvReac Type Severity Reaction Status Date / Time No Known Allergies Allergy Verified 10/07/24 15:52 Review of Systems Const: Denies: fever(s), chills or fatigue Eyes: Denies: change in vision Card: Denies: chest pain Resp: Denies: dyspnea GI: Denies: nausea or vomiting Musc: Reports: neck pain; Denies: back pain, extremity pain, extremity swelling, joint pain or joint swelling Neuro: Denies: headache(s) PFSH ED PFSH: Medical History Asthma Glioblastoma Surgical History History of cholecystectomy Hx of tubal ligation History of craniotomy (08/29/23) right-sided craniotomy with tumor debulking Family History Father Esophageal cancer Family/Other Lung cancer Social History Smoking and tobacco/nicotine status: tobacco/nicotine user, details unknown cigarettes [ Other cigarette details: She previously smoked 1 PPD, but she is now down to 3 cigarettes/day.] Alcohol intake: current Alcohol intake frequency: 0-2 Drinks per Day Substance/Drug Use: former Former substance use details: She has a history of fentanyl and methamphetamine abuse. Physical Exam Const: COMMON NORMALS: no acute distress, average body habitus, patient oriented x3, no limitations, healthy appearing, alert and well nourished GENERAL APPEARANCE: cooperative Eye: GENERAL EYE: appearance normal, both eyes and all related structures and normal light reflex DIRECT OPHTHALMOSCOPY: Yes normal light reflex Neck/C-Spine: COMMON NORMALS: full ROM, no lymphadenopathy, supple, no meningeal signs, no JVD, Thyroid normal and No carotid bruits GENERAL: No normal visual inspection and No submandibular swelling THYROID: Thyroid normal CERVICAL SPINE: Yes cervical ROM normal, No Cervical spine tenderness, No step off deformity, Yes Paracervical muscle tenderness, No Paracervical spasm and No Lhermitte's sign positive Resp: COMMON NORMALS: normal respiratory effort and clear to auscultation bilaterally AUSCULTATION: clear to auscultation bilaterally Cardio: COMMON NORMALS: no JVD, regular rate and regular rhythm RATE: regular rate RHYTHM: regular rhythm Extremity: GENERAL: Yes normal exam except as noted Neuro: MARINA COMA SCALE: document GCS findings [place] coma scale eye opening: Spontaneous Marina coma scale verbal response: Orientated [place] coma scale motor response: Obey commands Marina coma scale total score: 15 COMMON NORMALS: patient oriented x3, CN's II-XII intact bilaterally, moves all extremities, no focal motor deficits, no sensory deficits noted and gait normal SENSORIUM/ORIENTATION: Yes alert MENINGEAL SIGNS: Yes no meningeal signs Course Vital Signs: Vital signs: Vital Signs Temperature 98.0 F 10/11/24 13:43 Pulse Rate 68 10/11/24 15:54 Respiratory Rate 18 10/11/24 14:42 Blood Pressure 144/93 10/11/24 15:54 Pulse Oximetry 95 10/11/24 15:54 Oxygen Delivery Me thod Room Air 10/11/24 14:02 MDM - Neck Pain/Injury Medical Decision Making Patient reports feeling better after medications here. No concern at this time for epidural abscess, cord compression, meningitis, tumor extension, arterial dissection, or other emergent condition. She is asking for something for pain. States her muslce relaxer is not helping so will switch this. Recommend follow up with PCP. Return precautions given. Medical Records I reviewed the patient's medical records. Lab Data I reviewed the patient's lab results. No radiology studies performed this visit Discharge Plan Discharge Patient Disposition: Home Clinical Impression: Strain of neck muscle Qualifiers: Encounter type: initial encounter Qualified Code(s): S16.1XXA - Strain of muscle, fascia and tendon at neck level, initial encounter Condition: Stable Prescriptions: New methocarbamol 500 mg tablet 1,000 mg PO Q8H Qty: 30 0RF tramadol 50 mg tablet 50 mg PO Q6H PRN (Reason: pain) Qty: 14 0RF Discontinued cyclobenzaprine 10 mg tablet 10 mg PO Q8H PRN (Reason: muscle spasm) Qty: 30 0RF No Action albuterol sulfate 90 mcg/actuation HFA aerosol inhaler 2 puff inhalation Q6H PRN (Reason: Shortness Of Breath Or Wheezing) temozolomide 180 mg capsule 360 mg PO DAILY 5 Days Qty: 10 3RF Rx Instructions: must be taken on empty stomach Take on days 1-5 of a 28 day cycle. acetaminophen [Tylenol Extra Strength] 500 mg Tablet 1,000 mg PO Q6H PRN (Reason: Fever Or Pain) ibuprofen [Advil] 200 mg Tablet 1,000 mg PO Q6H PRN (Reason: Fever Or Pain) Discharge Orders: Discharge ED (Routine); Ordered 10/11/24 Ordered By: Anna Marie Clark Patient Instructions: Cervical Sprain (ED), Acute Neck Pain (ED), Opioid Safety, Pain Management Activity Restrictions/Additional Instructions: You may continue to follow-up with your primary care provider for further evaluation of your neck pain. You may return to the emergency department at anytime for severe neck pain, headache, fevers, loss of sensation or weakness to your arms, or any other concerns you may have. We will have you discontinue the cyclobenzaprine/flexeril and try different muscle relaxer to see if this helps. Print Language: Malay Coding Level of Care Code ED Marketing Strategy Lead for Raiza Carmona
[2024-10-11 14:02] VITALS: BP 121/76; PULSE 80; O2SAT 99
[2024-10-11] MEDS: orphenadrine 30 mg/mL Inj 2 mL 60 MG IVP (14:38)
[2024-10-11] MEDS: ketorolac 60 mg/2 mL INJ 30 MG IVP (14:39)
[2024-10-11 14:42] VITALS: RESP 18; O2SAT 100
[2024-10-11] MEDS: morphine 4 mg/mL SDV 1 mL IVP (14:42)
[2024-10-11] MEDS: dexamethasone 10 mg/mL INJ 8 MG IVP (14:43)
[2024-10-11 15:54] VITALS: BP 144/93; PULSE 68; O2SAT 95
== END 2024-10-11 15:56 | disposition home or self-care (01) ==
PROVIDERS: Emergency Provider Physician Assistant
DX: S16.1XXA Strain of muscle, fascia and tendon at neck level, initial encounter (principal); C71.9 Malignant neoplasm of brain, unspecified; F17.210 Nicotine dependence, cigarettes, uncomplicated; X58.XXXA Exposure to other specified factors, initial encounter
CPT/HCPCS: 96374; 96375; 99284; J1100; J1885; J2270; J2360

== ENCOUNTER 2024-10-16 08:45 | Oncology outpatient (recurring) (ONCR) | payer BC, MEDICAID, SELFPAY ==
[2024-10-07 16:10] LABS: Basophils % 0.4 %; Eosinophils # 0.1 10^3/uL (0.0-0.8); Eosinophils % 1.2 %; Hematocrit 37.7 % (36-47); Lymphocytes # 1.1 10^3/uL (0.8-4.8); Lymphocytes % 18.9 %; Mean Corpuscular HGB Conc 33.7 g/dL (30-55); Mean Corpuscular Hemoglobin 30.6 pg (27-33); Mean Corpuscular Volume 90.8 fl (85-98); Mean Platelet Volume 9.9 fL (7.4-10.4); Monocytes # 0.4 10^3/uL (0.2-0.9); Monocytes % 6.7 %; Neutrophils % 72.4 %; Nucleated Red Blood Cells % 0 %; Platelet Count 306 10^3/cmm (157-399); Red Blood Count 4.15 10^6/uL (3.85-5.65); Red Cell Distribution Width 13.4 % (12.1-15.1); White Blood Count 5.66 10^3/uL (3.29-11.43)
[2024-10-07 16:32] LABS: Alanine Aminotransferase 21 U/L (0-33); Alkaline Phosphatase 50 U/L (35-105); Anion Gap 16.4 (5-19); Aspartate Amino Transferase 16 U/L (0-32); Blood Urea Nitrogen 9 mg/dL (6-20); Calcium 8.8 mg/dL (8.5-10.5); Carbon Dioxide 22 mmol/L (22-29); Chloride 106 mmol/L (98-107); Creatinine Clr Calc Pharmacy 123.4672; Globulin 3.1 g/dL (1.3-4.6); Glomerular Filtration Rate 92.7 mL/min (90-130); Glucose 101 mg/dL (65-115); Osmolality Calculated 291 mOsm/kg (285-295); Potassium 3.4 mmol/L (3.5-5.1); Sodium 141 mmol/L (136-145); Total Bilirubin 0.3 mg/dL (0.15-1.2); Total Protein 7.1 g/dL (6.6-8.7)
--- NOTE | 2024-10-16 08:45 | MR_ITS ---
WS: [id number] MRI HEAD WITH CONTRAST TECHNIQUE: Sagittal T1, T2 axial, T2 axial FLAIR, axial susceptibility weighted imaging, axial diffusion weighted images, and coronal T2 images were obtained. Pre and post-T1 axial and post T1 coronal images. ADC and FSPGR images. CLINICAL INFORMATION: glioblastoma multiforme of frontal lobe COMPARISON: MRI 07/08/2024 FINDINGS: Prior postoperative changes RIGHT frontal craniotomy with resection cavity RIGHT frontal lobe for GBM. Small amount of layering blood products in the resection cavity. Peripheral enhancement about the resection cavity which is similar in appearance to previous. Persistent associated surrounding nonenhancing T2 signal abnormality. Persistent mass effect on the RIGHT lateral ventricle with RIGHT to LEFT midline shift and partial effacement of the RIGHT frontal horn. RIGHT to LEFT midline shift measures 4 mm. Overall mass effect on the ventricular system appears slightly improved compared to previous. No hydrocephalus. Supratentorial mass effect with crowding at the foramen magnum and mild inferior displacement of the cerebellar tonsils is unchanged. Third ventricle is patent. Normal vascular flow voids at the skull base. No extra-axial fluid collections. Paranasal sinuses and mastoid air cells are well aerated. No restricted diffusion to suggest acute ischemia. MR/MR head wo/w con [id number] IMPRESSION: 1. GBM resection cavity RIGHT frontal lobe is similar in appearance compared t o 07/08/2024. Slightly improved but persistent mass effect today. 2. RIGHT to LEFT midline shift measures 4 mm. Persistent but slightly improved mass effect on the RIGHT frontal horn. Persistent supratentorial mass effect w ith mild crowding at the foramen magnum. 3. Partial effacement of the ambient cisterns is unchanged. 4. No hydrocephalus. 5. No other acute findings.
[2024-10-16] MEDS: gadobenate dimeglumine 20 mL vial IV (09:38)
== END 2024-10-19 23:59 | disposition home or self-care (01) ==
LOC: ONCMED 09:29 → RAD 10-17 00:01 → ONCMED 10-17 09:05
PROVIDERS: Absent Provider Internal Medicine Medical Oncology; Visit Provider Internal Medicine Medical Oncology
DX: Z53.9 Procedure and treatment not carried out, unspecified reason; C71.1 Malignant neoplasm of frontal lobe
CPT/HCPCS: 36415; 70553; 80053; 85025

== ENCOUNTER 2024-11-04 13:49 | Oncology outpatient (recurring) (ONCR) | payer BC, MEDICAID, SELFPAY ==
[2024-11-04 14:09] LABS: Basophils % 0.3 %; Eosinophils # 0.1 10^3/uL (0.0-0.8); Eosinophils % 0.7 %; Hematocrit 40.1 % (36-47); Lymphocytes # 1.1 10^3/uL (0.8-4.8); Lymphocytes % 15.7 %; Mean Corpuscular HGB Conc 34.9 g/dL (30-55); Mean Corpuscular Hemoglobin 31.1 pg (27-33); Mean Corpuscular Volume 89.1 fl (85-98); Mean Platelet Volume 9.6 fL (7.4-10.4); Monocytes # 0.3 10^3/uL (0.2-0.9); Monocytes % 4.6 %; Neutrophils # 5.68 10^3/uL (1.8-7.7); Neutrophils % 78.4 %; Nucleated Red Blood Cells % 0 %; Platelet Count 338 10^3/cmm (157-399); Red Cell Distribution Width 13.4 % (12.1-15.1); White Blood Count 7.24 10^3/uL (3.29-11.43)
[2024-11-04 14:34] LABS: Alanine Aminotransferase 23 U/L (0-33); Albumin Level 4.3 g/dL (3.5-5.2); Alkaline Phosphatase 59 U/L (35-105); Anion Gap 15.5 (5-19); Aspartate Amino Transferase 15 U/L (0-32); Blood Urea Nitrogen 9 mg/dL (6-20); Calcium 9.6 mg/dL (8.5-10.5); Carbon Dioxide 23 mmol/L (22-29); Chloride 106 mmol/L (98-107); Globulin 3.2 g/dL (1.3-4.6); Glomerular Filtration Rate 92.7 mL/min (90-130); Glucose 127 mg/dL (65-115); Osmolality Calculated 292 mOsm/kg (285-295); Potassium 3.5 mmol/L (3.5-5.1); Sodium 141 mmol/L (136-145); Total Bilirubin 0.4 mg/dL (0.15-1.2); Total Protein 7.5 g/dL (6.6-8.7)
== END 2024-11-18 23:59 | disposition home or self-care (01) ==
PROVIDERS: Absent Provider Internal Medicine Medical Oncology; Visit Provider Internal Medicine Medical Oncology
DX: C71.1 Malignant neoplasm of frontal lobe (principal)
CPT/HCPCS: 36415; 80053; 85025

== ENCOUNTER 2024-12-02 12:59 | Oncology outpatient (recurring) (ONCR) | payer BC, MEDICAID, SELFPAY ==
[2024-12-02 13:51] LABS: Hematocrit 39.4 % (36-47); Hemoglobin 13.40 g/dL (11.27-16.99); Mean Corpuscular HGB Conc 34.0 g/dL (30-55); Mean Corpuscular Hemoglobin 30.6 pg (27-33); Mean Corpuscular Volume 90.0 fl (85-98); Nucleated Red Blood Cells % 0 %; Platelet Count 287 10^3/cmm (157-399); Red Blood Count 4.38 10^6/uL (3.85-5.65); White Blood Count 5.63 10^3/uL (3.29-11.43)
[2024-12-02 14:17] LABS: Alanine Aminotransferase 19 U/L (0-33); Albumin Level 4.2 g/dL (3.5-5.2); Alkaline Phosphatase 68 U/L (35-105); Anion Gap 14.7 (5-19); Aspartate Amino Transferase 15 U/L (0-32); Blood Urea Nitrogen 8 mg/dL (6-20); Calcium 9.3 mg/dL (8.5-10.5); Carbon Dioxide 24 mmol/L (22-29); Chloride 106 mmol/L (98-107); Creatinine Clr Calc Pharmacy 121.0198; Globulin 3.2 g/dL (1.3-4.6); Glucose 104 mg/dL (65-115); Osmolality Calculated 291 mOsm/kg (285-295); Potassium 3.7 mmol/L (3.5-5.1); Sodium 141 mmol/L (136-145); Total Protein 7.4 g/dL (6.6-8.7)
== END 2024-12-19 23:59 | disposition home or self-care (01) ==
PROVIDERS: Absent Provider Internal Medicine Medical Oncology; Visit Provider Internal Medicine Medical Oncology
DX: C71.1 Malignant neoplasm of frontal lobe (principal)
CPT/HCPCS: 36415; 80053; 85025

== ENCOUNTER 2024-12-30 12:33 | Oncology outpatient (recurring) (ONCR) | payer BC, MEDICAID, SELFPAY ==
--- NOTE | 2024-12-23 12:15 | MR_ITS ---
WS: [id number] MRI HEAD WITH CONTRAST TECHNIQUE: Sagittal T1, T2 axial, T2 axial FLAIR, axial susceptibility weighted imaging, axial diffusion weighted images, and coronal T2 images were obtained. Pre and post-T1 axial and post T1 coronal images. ADC and FSPGR images. CLINICAL INFORMATION: restaging COMPARISON: 10/16/24 FINDINGS: Prior postoperative changes RIGHT frontal craniotomy with resection cavity RIGHT frontal lobe for GBM. Small amount of layering blood products in the resection cavity. Peripheral enhancement about the resection cavity which stable compared to previous. Persistent associated surrounding nonenhancing T2 signal abnormality with mass effect on the RIGHT lateral ventricle is stable. Stable partial effacement of the RIGHT lateral ventricle and RIGHT frontal horn. RIGHT to LEFT midline shift measures 4 mm unchanged since 10/16/2024. No evidence of new or progressive disease. No hydrocephalus. Persistent supratentorial mass effect with crowding at the foramen magnum and mild inferior displacement of the cerebellar tonsils is unchanged. Third ventricle remains patent. No restricted diffusion to suggest acute ischemia. No other acute findings. MR/MR head wo/w con [id number] IMPRESSION: 1. Overall no significant changes compared to 10/16/2024. 2. No evidence of progressive disease. 3. Resection cavity is stable. 4. Mass effect on the RIGHT lateral ventricle is overall unchanged.
[2024-12-23] MEDS: gadobenate dimeglumine 20 mL vial IV (12:30)
[2024-12-30 13:04] LABS: Hematocrit 40.0 % (36-47); Hemoglobin 13.70 g/dL (11.27-16.99); Mean Corpuscular HGB Conc 34.3 g/dL (30-55); Mean Corpuscular Hemoglobin 30.7 pg (27-33); Mean Corpuscular Volume 89.7 fl (85-98); Nucleated Red Blood Cells % 0 %; Platelet Count 294 10^3/cmm (157-399); Red Blood Count 4.46 10^6/uL (3.85-5.65); White Blood Count 6.44 10^3/uL (3.29-11.43)
[2024-12-30 13:22] LABS: Alanine Aminotransferase 17 U/L (0-33); Albumin Level 4.2 g/dL (3.5-5.2); Alkaline Phosphatase 64 U/L (35-105); Anion Gap 15.8 (5-19); Aspartate Amino Transferase 15 U/L (0-32); Blood Urea Nitrogen 11 mg/dL (6-20); Calcium 9.4 mg/dL (8.5-10.5); Carbon Dioxide 23 mmol/L (22-29); Chloride 104 mmol/L (98-107); Creatinine Clr Calc Pharmacy 119.4898; Globulin 3.1 g/dL (1.3-4.6); Glucose 91 mg/dL (65-115); Osmolality Calculated 287 mOsm/kg (285-295); Potassium 3.8 mmol/L (3.5-5.1); Sodium 139 mmol/L (136-145); Total Protein 7.3 g/dL (6.6-8.7)
== END 2025-01-19 23:59 | disposition home or self-care (01) ==
PROVIDERS: Nurse Practitioner Family; Visit Provider Internal Medicine Medical Oncology
DX: C71.1 Malignant neoplasm of frontal lobe; Z92.3 Personal history of irradiation; Z87.891 Personal history of nicotine dependence; Z79.899 Other long term (current) drug therapy; Z53.9 Procedure and treatment not carried out, unspecified reason
CPT/HCPCS: 36415; 70553; 80053; 85025; A9577

== ENCOUNTER 2025-02-03 16:20 | Oncology outpatient (recurring) (ONCR) | payer BC, MEDICAID, SELFPAY ==
[2025-01-27 14:54] LABS: Hematocrit 36.5 % (36-47); Hemoglobin 12.20 g/dL (11.27-16.99); Mean Corpuscular HGB Conc 33.4 g/dL (30-55); Mean Corpuscular Hemoglobin 30.2 pg (27-33); Mean Corpuscular Volume 90.3 fl (85-98); Nucleated Red Blood Cells % 0 %; Platelet Count 285 10^3/cmm (157-399); Red Blood Count 4.04 10^6/uL (3.85-5.65); White Blood Count 5.55 10^3/uL (3.29-11.43)
[2025-01-27 15:15] LABS: Alanine Aminotransferase 18 U/L (0-33); Albumin Level 3.8 g/dL (3.5-5.2); Alkaline Phosphatase 69 U/L (35-105); Anion Gap 14.4 (5-19); Aspartate Amino Transferase 14 U/L (0-32); Blood Urea Nitrogen 12 mg/dL (6-20); Calcium 9.1 mg/dL (8.5-10.5); Carbon Dioxide 24 mmol/L (22-29); Chloride 106 mmol/L (98-107); Globulin 2.8 g/dL (1.3-4.6); Glucose 88 mg/dL (65-115); Osmolality Calculated 291 mOsm/kg (285-295); Potassium 3.4 mmol/L (3.5-5.1); Sodium 141 mmol/L (136-145); Total Protein 6.6 g/dL (6.6-8.7)
[2025-02-03 18:02] LABS: Blood Urea Nitrogen 12 mg/dL (6-20); Calcium 9.0 mg/dL (8.5-10.5); Carbon Dioxide 22 mmol/L (22-29); Chloride 106 mmol/L (98-107); Creatinine Clr Calc Pharmacy 120.1016; Glucose 86 mg/dL (65-115); Osmolality Calculated 289 mOsm/kg (285-295); Sodium 140 mmol/L (136-145)
[2025-02-03 18:15] LABS: Anion Gap 15.8 (5-19); Potassium 3.8 mmol/L (3.5-5.1)
== END 2025-02-18 23:59 | disposition home or self-care (01) ==
PROVIDERS: Nurse Practitioner; Visit Provider Nurse Practitioner Family
DX: E87.6 Hypokalemia; Z53.9 Procedure and treatment not carried out, unspecified reason
CPT/HCPCS: 36415; 80048; 80053; 85025

== ENCOUNTER 2025-03-06 16:03 | Outpatient (CLI) | payer BC, MEDICAID, SELFPAY ==
--- NOTE | 2025-03-06 16:06 | XR_ITS ---
WS: [id number] XR KUB [id number] REASON FOR EXAM: flank pain FINDINGS: Post cholecystectomy. No free air or retroperitoneal air. The bowel gas pattern is unremarkable. No urinary tract calculi identified. Calcification in the right pelvis appears to be vascular and was present on a previous CT scan of 10/11/2022. No significant abnormality of the lumbar spine and bony pelvis. XR/XR KUB [id number] IMPRESSION: No significant abnormality.
== END 2025-03-06 16:04 | disposition home or self-care (01) ==
LOC: RAD 16:05
DX: R10.A0 Flank pain, unspecified side (principal); Z90.49 Acquired absence of other specified parts of digestive tract
CPT/HCPCS: 74018

== ENCOUNTER 2025-03-12 15:15 | Oncology outpatient (recurring) (ONCR) | payer BC, MEDICAID, SELFPAY ==
[2025-02-24 12:33] LABS: Hematocrit 36.8 % (36-47); Hemoglobin 12.60 g/dL (11.27-16.99); Mean Corpuscular HGB Conc 34.2 g/dL (30-55); Mean Corpuscular Hemoglobin 31.0 pg (27-33); Mean Corpuscular Volume 90.6 fl (85-98); Nucleated Red Blood Cells % 0 %; Platelet Count 286 10^3/cmm (157-399); Red Blood Count 4.06 10^6/uL (3.85-5.65); White Blood Count 4.97 10^3/uL (3.29-11.43)
[2025-02-24 12:53] LABS: Alanine Aminotransferase 26 U/L (0-33); Albumin Level 4.4 g/dL (3.5-5.2); Alkaline Phosphatase 62 U/L (35-105); Anion Gap 18.6 (5-19); Aspartate Amino Transferase 19 U/L (0-32); Blood Urea Nitrogen 10 mg/dL (6-20); Calcium 9.1 mg/dL (8.5-10.5); Carbon Dioxide 20 mmol/L (22-29); Chloride 105 mmol/L (98-107); Creatinine Clr Calc Pharmacy 137.7307; Globulin 2.9 g/dL (1.3-4.6); Glucose 88 mg/dL (65-115); Osmolality Calculated 288 mOsm/kg (285-295); Potassium 3.6 mmol/L (3.5-5.1); Sodium 140 mmol/L (136-145); Total Protein 7.3 g/dL (6.6-8.7)
[2025-02-24 13:38] LABS: Glucose Urine UA Negative (Normal); Nitrate Urine Negative (Negative); Specific Gravity, Urine 1.026 (1.005-1.030)
[2025-02-24 14:01] LABS: Add Urine Microscopic? YES
[2025-03-05 16:36] LABS: Glucose Urine UA Negative (Normal); Nitrate Urine Negative (Negative); Specific Gravity, Urine 1.029 (1.005-1.030)
[2025-03-05 16:38] LABS: Add Urine Microscopic? YES
[2025-03-05 17:24] LABS: UA Slide Review UA Slide Review Perf
--- NOTE | 2025-03-11 13:00 | CTR_ITS ---
PROCEDURE INFORMATION: Exam: CT Abdomen And Pelvis With Contrast Exam date and time: 03/11/2025 1:53 PM Age: 39 years old Clinical indication: Abnormal findings; Abnormal radiologic finding of the abdomen; Radiologic exam and body structure: Kub; Prior surgery; Surgery date: 6+ months; Surgery type: Gb, tubal; Additional info: Hematuria without calculi and abnormal kub, renal protocol with attention to right renal pelvis as per TECHNIQUE: Imaging protocol: Computed tomography of the abdomen and pelvis with contrast. 3D rendering (Not supervised by radiologist): MIP and/or 3D reconstructed images were created by the technologist. Radiation optimization: All CT scans at this facility use at least one of these dose optimization techniques: automated exposure control; mA and/or kV adjustment per patient size (includes targeted exams where dose is matched to clinical indication); or iterative reconstruction. Contrast material: OMNI 350; Contrast volume: 100 ml; Contrast route: INTRAVENOUS (IV); COMPARISON: CT chest abdpel w/*[id number] 08/24/2023 11:45 PM RADIATION DOSE METRICS: Total DLP (mGy-cm): 2103.13 FINDINGS: Lungs: The lung bases are clear. Liver: Normal. No mass. Gallbladder and biliary ducts: Cholecystectomy. Pancreas: Normal. No ductal dilation. Spleen: Normal. No splenomegaly. Adrenal glands: Normal. No mass. Kidneys and ureters: There is normal bilateral symmetric renal cortical enhancement. On delayed imaging there is normal bilateral symmetric concentration and excretion of contrast. The ureters are normal in course and caliber to the bladder. The are seen intermittently contrast opacified on the delayed sequencing. Stomach and bowel: Unremarkable. No obstruction. No mucosal thickening. Appendix: No evidence of appendicitis. Intraperitoneal space: Unremarkable. No free air. No significant fluid collection. Vasculature: Unremarkable. No abdominal aortic aneurysm. Lymph nodes: Unremarkable. No enlarged lymph nodes. Urinary bladder: The bladder is unremarkable. There are no bladder calcifications. There are no filling defects. There is no definite wall thickening appreciated by CT. The bladder is incompletely distended on all sequencing. Reproductive: Unremarkable as visualized. Bones/joints: There is no acute osseous abnormality seen. Soft tissues: Unremarkable. CT/CT abdomen pelvis w con* [id number] IMPRESSION: No acute process.
[2025-03-11] MEDS: iohexol 350 mg/mL 500 mL Btl (per mL) IV (14:00)
--- NOTE | 2025-03-12 15:15 | MR_ITS ---
WS: [id number] MRI BRAIN WITH AND WITHOUT CONTRAST HISTORY: restaging GBM. COMPARISON: 12/23/2024, 10/16/2024 TECHNIQUE: Multiplanar imaging performed through the brain with MultiHance 20 ml's IV. Postoperative resection cavity in the RIGHT frontal lobe is reidentified. Resection cavity with peripheral and nodular enhancement is reidentified. Small amount of hemosiderin in the resection cavity. Resection cavity measures 4.0 x 5.2 x 4.8 cm. There is nodular enhancement extending medially and inferiorly abutting the anterior RIGHT corpus callosum. Although subtle suspect there has been progression of the enhancing nodular component abutting the anterior horn of the RIGHT lateral ventricle. On the FLAIR sequence there is increased signal extending through the anterior corpus callosum which now extends to the LEFT. Effacement of the anterior horn of the RIGHT lateral ventricle. Mild mass effect upon the RIGHT lateral ventricle. There is continued 7 mm of midline shift to the LEFT. Mild nodular enhancement is again identified through the craniotomy defects. Temporal horns are not dilated. There is mild crowding of the posterior fossa and craniocervical junction but unchanged over multiple prior exams. Paranasal sinuses: Well aerated with no significant disease. Mastoid air cells: Normal. Calvarium and scalp: Normal. MR/MR head wo/w con [id number] IMPRESSION: 1. Status post RIGHT frontal lobe resection cavity is again identified measuri ng 4.0 x 5.2 x 4.8 cm. 2. There has been progression of the nodular component which enhances extendin g inferior and medial to abut the corpus callosum. Enhancing nodular component has progressed when compared to 07/08/2024. 3. Increased FLAIR signal now extending along the anterior corpus callosum to the LEFT. 4. Midline shift by 7 mm is similar to the prior study. Unchanged mass effect upon the RIGHT lateral ventricle.
[2025-03-12] MEDS: gadobenate dimeglumine 20 mL vial IV (16:02)
== END 2025-03-21 23:59 | disposition home or self-care (01) ==
LOC: ONCMED 03-13 09:21
PROVIDERS: Visit Provider Nurse Practitioner Family
DX: C71.1 Malignant neoplasm of frontal lobe (principal); Z98.890 Other specified postprocedural states; R93.0 Abnormal findings on diagnostic imaging of skull and head, not elsewhere classified
CPT/HCPCS: 36415; 70553; 74177; 80053; 81001; 85025; 87086

== ENCOUNTER 2025-03-24 12:19 | Oncology outpatient (recurring) (ONCR) | payer BC, MEDICAID, SELFPAY ==
[2025-03-24 12:46] LABS: Hematocrit 36.9 % (36-47); Hemoglobin 12.50 g/dL (11.27-16.99); Mean Corpuscular HGB Conc 33.9 g/dL (30-55); Mean Corpuscular Hemoglobin 30.6 pg (27-33); Mean Corpuscular Volume 90.2 fl (85-98); Nucleated Red Blood Cells % 0 %; Platelet Count 287 10^3/cmm (157-399); Red Blood Count 4.09 10^6/uL (3.85-5.65); White Blood Count 4.73 10^3/uL (3.29-11.43)
[2025-03-24 13:08] LABS: Alanine Aminotransferase 21 U/L (0-33); Albumin Level 4.4 g/dL (3.5-5.2); Alkaline Phosphatase 71 U/L (35-105); Anion Gap 14.5 (5-19); Aspartate Amino Transferase 16 U/L (0-32); Blood Urea Nitrogen 11 mg/dL (6-20); Calcium 9.7 mg/dL (8.5-10.5); Carbon Dioxide 25 mmol/L (22-29); Chloride 108 mmol/L (98-107); Globulin 2.9 g/dL (1.3-4.6); Glucose 104 mg/dL (65-115); Osmolality Calculated 298 mOsm/kg (285-295); Potassium 3.5 mmol/L (3.5-5.1); Sodium 144 mmol/L (136-145); Total Protein 7.3 g/dL (6.6-8.7)
== END 2025-04-20 23:59 | disposition home or self-care (01) ==
PROVIDERS: Visit Provider Nurse Practitioner Family
DX: C71.1 Malignant neoplasm of frontal lobe (principal)
CPT/HCPCS: 36415; 80053; 85025

== ENCOUNTER 2025-04-21 14:13 | Oncology outpatient (recurring) (ONCR) | payer BC, MEDICAID, SELFPAY ==
[2025-04-21 14:41] LABS: Hematocrit 36.9 % (36-47); Hemoglobin 12.80 g/dL (11.27-16.99); Mean Corpuscular HGB Conc 34.7 g/dL (30-55); Mean Corpuscular Hemoglobin 31.8 pg (27-33); Mean Corpuscular Volume 91.6 fl (85-98); Nucleated Red Blood Cells % 0 %; Platelet Count 252 10^3/cmm (157-399); Red Blood Count 4.03 10^6/uL (3.85-5.65); White Blood Count 5.20 10^3/uL (3.29-11.43)
[2025-04-21 15:03] LABS: Alanine Aminotransferase 32 U/L (0-33); Albumin Level 4.4 g/dL (3.5-5.2); Alkaline Phosphatase 63 U/L (35-105); Anion Gap 13.9 (5-19); Aspartate Amino Transferase 25 U/L (0-32); Blood Urea Nitrogen 10 mg/dL (6-20); Calcium 9.5 mg/dL (8.5-10.5); Carbon Dioxide 25 mmol/L (22-29); Chloride 102 mmol/L (98-107); Globulin 3.1 g/dL (1.3-4.6); Glucose 126 mg/dL (65-115); Osmolality Calculated 285 mOsm/kg (285-295); Potassium 3.9 mmol/L (3.5-5.1); Sodium 137 mmol/L (136-145); Total Protein 7.5 g/dL (6.6-8.7)
== END 2025-05-21 23:59 | disposition home or self-care (01) ==
PROVIDERS: Internal Medicine Medical Oncology; Visit Provider Nurse Practitioner Family
DX: C71.1 Malignant neoplasm of frontal lobe (principal); R10.A0 Flank pain, unspecified side
CPT/HCPCS: 36415; 80053; 85025

== ENCOUNTER 2025-05-12 12:31 | Outpatient (CLI) | payer BC, MEDICAID, SELFPAY ==
--- NOTE | 2025-05-12 12:15 | MR_ITS ---
WS: [id number] MRI HEAD WITH CONTRAST TECHNIQUE: Sagittal T1, T2 axial, T2 axial FLAIR, axial susceptibility weighted imaging, axial diffusion weighted images, and coronal T2 images were obtained. Pre and post-T1 axial and post T1 coronal images. ADC and FSPGR images. CLINICAL INFORMATION: Restaging COMPARISON: 03/12/2025 and 12/23/2024 FINDINGS: Prior postoperative changes RIGHT frontal craniotomy with resection cavity RIGHT frontal lobe for GBM. T1 hyperintense subacute blood products in the resection cavity appear increased compared to previous with associated hemosiderin in the resection cavity. Slightly increased surrounding enhancing nodularity about the mid and inferior aspect of the resection cavity extending to the RIGHT frontal horn and corpus callosum. Findings suspicious for slight progressive disease. Surrounding nonenhancing T2 signal abnormality is relatively stable in appearance. This extends into the genu of the corpus callosum crossing midline. Persistent RIGHT to LEFT mass effect measuring 7-8 mm is stable. Third ventricle remains patent. No hydrocephalus. Persistent supratentorial mass effect with crowding at the foramen magnum and mild inferior displacement of the cerebellar tonsils is unchanged. Third ventricle remains patent. No restricted diffusion to suggest acute ischemia. No other acute findings. MR/MR head wo/w con [id number] IMPRESSION: 1. Suggestion of slight progression of disease with suggestion of slightly mor e solid nodular enhancement about the inferior aspect of the resection cavity e xtending to the corpus callosum. 2. Increased subacute T1 blood products within the resection cavity. 3. No other significant changes 4. Persistent stable nonenhancing T2 signal abnormality about the resection ca vity. 5. Resection cavity is not significantly changed in size measuring 4.5 x 3.8 x 4.7 cm AP by transverse by craniocaudal. 6. Recommend continued surveillance
== END 2025-05-12 12:32 | disposition home or self-care (01) ==
PROVIDERS: Visit Provider Nurse Practitioner Family
DX: C71.1 Malignant neoplasm of frontal lobe (principal); I97.42 Intraoperative hemorrhage and hematoma of a circulatory system organ or structure complicating other procedure; R90.89 Other abnormal findings on diagnostic imaging of central nervous system; Z98.890 Other specified postprocedural states
CPT/HCPCS: 70553